=== PATIENT | female | born 1940 | race Caucasian/White ===

== ENCOUNTER → 2018-07-09 08:36 | Outpatient (CLI) | payer MEDICARE, OTHER, SELFPAY ==
--- NOTE | 2018-07-09 | DI.MRI.S_ITS ---
PROCEDURE: MR LUMBAR SPINE WO CON INDICATIONS: PAIN IN LEFT LOWER LEG TECHNIQUE: Noncontrast sagittal T1 spin echo and T2 fast echo, sagittal STIR, axial T1 and T2 fast spin echo through the lumbar spine. In cases with scoliosis, additional coronal T2 fast spin echo may be performed. COMPARISON: None. FINDINGS: Image quality: Excellent. Alignment and Curvature: There is normal bony alignment. Bone Marrow: Marrow is of normal overall signal. No acute vertebral body compression fractures. Spinal Cord: Conus medullaris terminates at the L1-L2 level. Visualized cord demonstrates normal signal and size. Paraspinous Soft Tissues: No paravertebral masses. There is mild dependent subcutaneous edema from the level of L2-S1. L1-L2: Normal appearance. L2-L3: Mild bilateral facet disease and minimal broad-based posterior disc bulge. Minimal canal narrowing. Mild left foraminal narrowing. No definite right foraminal stenosis. L3-L4: Bilateral facet arthropathy. No definite canal stenosis. Mild prominence of the dorsal epidural fat. Mild left and right foraminal narrowing. L4-L5: Minimal broad-based posterior disc bulge and bilateral facet arthropathy. Minimal canal narrowing. Mild bilateral, right greater left foraminal narrowing. L5-S1: No definite canal stenosis. Mild left and no right foraminal stenoses IMPRESSION: Multilevel lumbar disc degeneration and facet arthropathy as above. No high-grade canal stenosis. Diffuse, low grade bilateral foraminal stenoses as detailed by spinal level. Dictated by: Alvarez Burciaga M.D. on 07/09/2018 at 10:08 Approved by: Alvarez Burciaga M.D. on 07/09/2018 at 10:15
== END ==
PROVIDERS: Family Provider Internal Medicine; PCP Internal Medicine; Visit Provider Orthopaedic Surgery
DX: M79.662 Pain in left lower leg (principal); M51.36 Other intervertebral disc degeneration, lumbar region; M47.816 Spondylosis without myelopathy or radiculopathy, lumbar region; M48.061 Spinal stenosis, lumbar region without neurogenic claudication; M48.07 Spinal stenosis, lumbosacral region
CPT/HCPCS: 72148

== ENCOUNTER → 2018-08-26 10:58 | Outpatient (CLI) | payer MEDICARE, OTHER, SELFPAY ==
--- NOTE | 2018-08-26 | DI.MRI.S_ITS ---
PROCEDURE: MR LOWER LEG LT WO CON COMPARISON: None. INDICATIONS: FIBULAR NERVE INJURY/LUMBAR RADICULOPATHY FINDINGS: Marrow signals unremarkable. There is postoperative change related to left tibial IM dedrick fixation. There is atrophy of the soleus muscle, however this appears to be bilateral enlarged field of view images. No soft tissue mass or focal fluid collection is seen. Normal signal intensity in the region of the common peroneal nerve. No definite atrophy of the anterior compartment muscles. There is questionable muscle signal change is seen involving anterior tibialis tendon although this is periosteal in location IMPRESSION: Atrophy of the soleus muscle however on large field of view images including the contralateral side, this appears to be bilateral in nature. Please correlate clinically. Elsewhere, grossly unremarkable examination. Normal signal intensity in the region of the common peroneal nerve. Questionable muscle edema involving the anterior tibialis however this is quite subtle and unclear clinical significance. Recommend clinical correlation. , Dictated by: Alvarez Burciaga M.D. on 08/26/2018 at 13:05 Approved by: Alvarez Burciaga M.D. on 08/26/2018 at 13:14
== END ==
PROVIDERS: PCP Internal Medicine; Visit Provider Physical Medicine & Rehabilitation
DX: M54.16 Radiculopathy, lumbar region (principal); S84.802A Injury of other nerves at lower leg level, left leg, initial encounter
CPT/HCPCS: 73718

== ENCOUNTER 2018-09-24 10:59 | Emergency (ER) | payer MEDICARE, OTHER, SELFPAY ==
[2018-09-24] VITALS (8 sets, daily range): BP systolic 108–174; BP diastolic 81–98; PULSE 60–72; RESP 16–18; TEMP 36.7; O2SAT 97–100
[2018-09-24] MEDS: SODIUM CHLORIDE 0.9% 1,000 ML 150 ML IV (13:30)
--- NOTE | 2018-09-24 13:34 | ED.ABDPAIN ---
HPI - Abdominal Pain General Chief Complaint: Abdominal Pain Stated Complaint: CONSTANT PAIN ON LEFT LOWER SIDE OF STOMACH Time Seen by Provider: 09/24/18 13:21 Source: patient Mode of arrival: ambulatory Limitations: no limitations History of Present Illness HPI narrative: Patient is a 78-year-old female presents with abdominal pain off and on for the last 2 years. She had an abdominal hernia repair with Dr. Mcdowell a few years back since then she has continued continue to have some problems. Over the last day or so she has had increasing pain. No nausea or vomiting. No fever. She has regular bowel movements and is passing gas. Related Data Home Medications Medication Instructions Recorded Confirmed meclizine 25 mg PO PRN #0 06/27/11 09/24/18 ibuprofen 600 mg PO TID PRN #0 06/18/16 09/24/18 A-Reds 2 1 cap PO BID 09/24/18 09/24/18 iron 1 tab PO PRN PRN 09/24/18 09/24/18 Previous Rx's Medication Instructions Recorded zolpidem 10 mg tablet 10 mg PO HSP PRN #30 tab 09/14/18 Allergies Allergy/AdvReac Type Severity Reaction Status Date / Time aspirin [ASPIRIN] AdvReac Mild STOMACH Verified 07/24/18 09:29 PAIN Review of Systems Review of Systems All systems reviewed & are unremarkable except as noted in HPI and below Constitutional Denies chills, Denies fever(s), Denies lethargy and Denies weakness Cardiovascular Denies chest pain, Denies irregular heart rhythm, Denies lightheadedness, Denies palpitations, Denies dyspnea, Denies dyspnea on exertion and Denies orthopnea Respiratory Denies cough, Denies dyspnea, Denies dyspnea on exertion and Denies wheezing Gastrointestinal Gastrointestinal: Reports as per HPI Musculoskeletal Denies back pain, Denies muscle weakness, Denies numbness and Denies tingling Integumentary/Breasts Denies pruritus, Denies erythema, Denies rash and Denies wounds Neurologic Denies numbness, Denies tingling and Denies weakness Endocrine Denies palpitations Allergic/Immunologic Denies wheezing [facility] Medical History Mixed hyperlipidemia (Chronic) Gastroesophageal reflux disease without esophagitis (Chronic) Central sleep apnea (Chronic) Obstructive sleep apnea of adult (Chronic) Surgical History Status post right partial knee replacement (Resolved) Family History Spouse Heart disease Mother Cancer Social History marital status: details: domestic partner household members: significant other lives independently: Yes caregiver/support person: No housing: house pets and animals: Yes education level: college occupational status: other (Retired) Previous occupational history: [employer]. 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[employer]) and other ([employer]) Smoking Status: Never smoker Tobacco: How many years used: 0 quit status: quit date established (Never Started) second hand exposure: Yes (Once in a while) alcohol intake: current substance use type: does not use Exam Initial Vital Signs Initial Vital Signs: Vital Signs Temperature 98.0 F 09/24/18 11:17 Pulse Rate 68 09/24/18 11:17 Respiratory Rate 18 09/24/18 11:17 Blood Pressure 174/95 H 09/24/18 11:17 Pulse Oximetry 99 09/24/18 11:17 GENERAL: Overweight well-appearing female no acute distress HEENT: Head atraumatic,EOMI, pupils reactive, CARDIOVASCULAR: Regular rate and rhythm without murmurs, rubs or gallops. RESPIRATORY: Breath sounds equal bilaterally, no wheezes rales or rhonchi. ABDOMEN: Soft, obese, midline pain scar noted no distension normal bowel sounds left lower quadrant pain no right upper quadrant pain : No CVA tenderness EXTREMITIES: Normal range of motion, no clubbing or edema. Neurovascularly intact NEUROLOGICAL: Alert and oriented x4.Normal gait and speech. Cranial nerves II through XII grossly intact. SKIN: Warm, dry, no laceration, no petechiae, no rashes or lesions. Course Orders Ordered: ED Orders 09/24/18 13:59 Complete Blood Count AUTO DIFF Stat Comprehensive Metabolic Panel Stat Lipase Stat 09/24/18 14:07 CT abdomen pelvis w con Stat Discontinued Medications Sodium Chloride (Normal Saline 0.9%) 1,000 mls @ 150 mls/hr IV CONT JABARI Last Infusion: 09/24/18 16:03 Dose: 0 mls/hr Infusion: 09/24/18 14:51 Dose: 150 mls/hr Infusion: 09/24/18 14:50 Dose: 0 mls/hr Admin: 09/24/18 13:30 Dose: 150 mls/hr Vital Signs - 8 hr 09/24/18 11:17 09/24/18 13:25 09/24/18 13:30 Temperature 98.0 F Pulse Rate 68 62 64 Respiratory Rate 18 18 Blood Pressure 174/95 H Blood Pressure [Right Arm] 146/93 H 135/81 Pulse Oximetry 99 100 97 09/24/18 13:59 09/24/18 14:00 09/24/18 14:30 Temperature Pulse Rate 60 61 60 Respiratory Rate 16 16 16 Blood Pressure Blood Pressure [Right Arm] 108/91 H 126/90 Pulse Oximetry 98 98 98 09/24/18 14:45 09/24/18 15:43 Temperature Pulse Rate 60 72 Respiratory Rate 16 17 Blood Pressure Blood Pressure [Right Arm] 168/98 H 140/95 H Pulse Oximetry 98 MDM - Abdominal Pain Lab Data Attestation: I reviewed the patient's lab results. Result diagrams: 09/24/18 13:59 09/24/18 13:59 Lab Results 09/24/18 09/24/18 Range/Units 13:59 13:59 WBC 6.9 (4.5-11.0) X10^3/uL RBC 4.68 (4.0-5.2) X10^6/uL Hgb 13.5 (12.0-16.0) g/dL Hct 41.1 (36-46) % MCV 87.9 (80-100) fL MCH 28.8 (26-34) PG MCHC 32.7 (30-36) % RDW 14.5 (11.6-14.8) % Plt Count 181 (150-400) X10^3/uL Neut % (Auto) 63.1 (50-75) % Lymph % (Auto) 19.1 L (25-40) % [place] % (Auto) 15.7 H (3-14) % Eos % (Auto) 1.5 L (2-4) % Baso % (Auto) 0.6 (0-2) % Neut # (Auto) 4300 (4532-3910) /uL Sodium 142 (137-145) mmol/L Potassium 4.2 (3.4-5.1) mmol/L Chloride 104 (98-107) mmol/L Carbon Dioxide 29 (22-32) mmol/L BUN 19 H (7-17) mg/dL Creatinine 0.70 (0.52-1.04) mg/dL Estimated GFR > 60.0 (>60) mL/min BUN/Creatinine Ratio 27.1 H (6-22) Glucose 88 (80-110) mg/dL Calcium 9.3 (8.4-10.2) mg/dL Total Bilirubin 0.2 (0.2-1.3) mg/dL AST 18 (14-36) IU/L ALT 28 (9-52) IU/L Alkaline Phosphatase 106 (38-126) U/L Total Protein 7.1 (6.3-8.2) g/dL Albumin 3.9 (3.5-5.0) g/dL Globulin 3.2 (1.7-4.1) g/dL Albumin/Globulin Ratio 1.2 (1.0-2.8) Lipase 189 (23-300) U/L Point of care testing: Urine Dip Bedside Urine Glucose Negative Bedside Urine Bilirubin - Negative Bedside Urine Ketone - Negative Urine Specific [place] 1.015 Bedside Urine Occult Blood - Negative Bedside Urine pH 6.0 Bedside Urine Protein - Negative Bedside Urine Urobilinogen - Negative Bedside Urine Nitrite - Negative Bedside Urine Leukocytes - Negative Esterase Imaging Data CT scan - abdomen: Radiologist's impression: PROCEDURE: CT ABDOMEN PELVIS W CON INDICATIONS: left lower quadrant pain hx of ventral hernia TECHNIQUE: After the administration of intravenous contrast, 5 mm thick sections acquired from the diaphragm to the symphysis. 5 mm coronal and sagittal reformats were acquired. For radiation dose reduction, the following was used: automated exposure control, adjustment of mA and/or kV according to patient size. COMPARISON: [facility], CT, ABDOMEN/PELVIS WITH CONTRAST, 01/21/2010, 9:14. FINDINGS: Image quality: Excellent. ABDOMEN: Lung bases: Scattered areas of bibasilar and lingual atelectasis are noted. Solid organs: Liver is normal in size and enhancement. Hepatic steatosis is present. Gallbladder demonstrates layering areas of hyperdensity without wall thickening. Biliary system is non dilated. Pancreas enhances normally. Spleen is normal in size and enhancement. No adrenal nodules. Kidneys demonstrate normal size and enhancement, without hydronephrosis. Peritoneum and bowel: Bowel loops demonstrate normal wall thickness and caliber. No free fluid or air. Nodes and vessels: No retroperitoneal or mesenteric adenopathy by size criteria. Aorta and inferior vena cava are normal in size. Miscellaneous: No ventral hernias. PELVIS: Genitourinary: Bladder wall thickness is normal. Miscellaneous: No inguinal hernias or adenopathy. Bones: No suspicious bony lesions. No vertebral body compression fractures. IMPRESSION: 1. No acute visualized cause of left lower quadrant pain. 2. Hepatic steatosis. Dictated by: Dariela Meier M.D. on 09/24/2018 at 14:43 MDM Narrative Medical decision making narrative: The patient is relieved to hear blood work and CT results do not show anything specific. I recommend that she follow up with her PCP for further evaluation possible colonoscopy if are continues to have pain. At this time no sign of obstruction Discharge Plan Departure Patient Disposition: Home Clinical Impression: Abdominal pain Discharge Date/Time: 09/24/18 15:56 Interventions: ED Discharge Assessment Last Done: 09/24/18 15:56 Instructions: DI for Abdominal Pain-Adult Activity Restrictions/Additional Instructions: *You have been diagnosed with abdominal pain *What to do: Blood work and CAT scan today do not show any acute abnormality *Continue to take medications as directed *Follow up with your primary care provider in 2-3 days *Return to ER if you should have worsening pain, persistent vomiting fever or any new, worsening or concerning symptoms Prescriptions: No Action meclizine 25 mg PO PRN Qty: 0 RF: 0 ibuprofen 600 MG tablet 600 mg PO TID PRN (Reason: pain) Qty: 0 RF: 0 zolpidem 10 mg tablet 10 mg PO HSP PRN (Reason: insomnia) Qty: 30 RF: 0 A-Reds 2 1 cap PO BID RF: 0 iron 1 tab PO PRN PRN (Reason: when needs a boost) RF: 0 Referrals: Prince España MD [Primary Care Provider] -
[2018-09-24 14:02] LABS: Add Manual Diff / Slide Review NO; Basophils Percent Auto 0.6 % (0-2); Eosinophils Percent Auto 1.5 % (2-4); Hematocrit 41.1 % (36-46); Hemoglobin 13.5 g/dL (12.0-16.0); Lymphocytes Percent Auto 19.1 % (25-40); Mean Corpuscular HGB Conc 32.7 % (30-36); Mean Corpuscular Hemoglobin 28.8 PG (26-34); Mean Corpuscular Volume 87.9 fL (80-100); Monocytes Percent Auto 15.7 % (3-14); Neutrophils Absolute Auto 4300 /uL (3000-5900); Neutrophils Percent Auto 63.1 % (50-75); Platelet Count 181 X10^3/uL (150-400); Red Blood Cell Count 4.68 X10^6/uL (4.0-5.2); Red Cell Distribution Width 14.5 % (11.6-14.8); White Blood Cell Count 6.9 X10^3/uL (4.5-11.0)
--- NOTE | 2018-09-24 14:07 | DI.CT.S_ITS ---
PROCEDURE: CT ABDOMEN PELVIS W CON INDICATIONS: left lower quadrant pain hx of ventral hernia TECHNIQUE: After the administration of intravenous contrast, 5 mm thick sections acquired from the diaphragm to the symphysis. 5 mm coronal and sagittal reformats were acquired. For radiation dose reduction, the following was used: automated exposure control, adjustment of mA and/or kV according to patient size. COMPARISON: [facility], CT, ABDOMEN/PELVIS WITH CONTRAST, 01/21/2010, 9:14. FINDINGS: Image quality: Excellent. ABDOMEN: Lung bases: Scattered areas of bibasilar and lingual atelectasis are noted. Solid organs: Liver is normal in size and enhancement. Hepatic steatosis is present. Gallbladder demonstrates layering areas of hyperdensity without wall thickening. Biliary system is non dilated. Pancreas enhances normally. Spleen is normal in size and enhancement. No adrenal nodules. Kidneys demonstrate normal size and enhancement, without hydronephrosis. Peritoneum and bowel: Bowel loops demonstrate normal wall thickness and caliber. No free fluid or air. Nodes and vessels: No retroperitoneal or mesenteric adenopathy by size criteria. Aorta and inferior vena cava are normal in size. Miscellaneous: No ventral hernias. PELVIS: Genitourinary: Bladder wall thickness is normal. Miscellaneous: No inguinal hernias or adenopathy. Bones: No suspicious bony lesions. No vertebral body compression fractures. IMPRESSION: 1. No acute visualized cause of left lower quadrant pain. 2. Hepatic steatosis. Dictated by: Dariela Meier M.D. on 09/24/2018 at 14:43 Approved by: Dariela Meier M.D. on 09/24/2018 at 15:03
[2018-09-24 14:16] LABS: Alanine Aminotransferase 28 IU/L (9-52); Albumin 3.9 g/dL (3.5-5.0); Albumin Globulin Ratio 1.2 (1.0-2.8); Alkaline Phosphatase 106 U/L (38-126); Aspartate Aminotransferase 18 IU/L (14-36); BUN Creatinine Ratio 27.1 (6-22); Bilirubin Total 0.2 mg/dL (0.2-1.3); Blood Urea Nitrogen 19 mg/dL (7-17); Calcium 9.3 mg/dL (8.4-10.2); Carbon Dioxide 29 mmol/L (22-32); Chloride 104 mmol/L (98-107); Estimated Glomerular Filt Rate > 60.0 mL/min (>60); Globulin 3.2 g/dL (1.7-4.1); Glucose 88 mg/dL (80-110); HEMOLYSIS < 15 (0-50); Lipase 189 U/L (23-300); Potassium 4.2 mmol/L (3.4-5.1); Sodium 142 mmol/L (137-145); Total Protein 7.1 g/dL (6.3-8.2)
--- NOTE | 2018-09-24 16:04 | PC.NURSE ---
pt reports, lower abdominal pain, worsen when standing and when she standing next to a counter , pressure on the abdomin, makes it worsen. denies fever,chills, had 2 bm today, normal, denies blood. denies trauma.
== END 2018-09-24 15:56 | disposition home or self-care (01) ==
PROVIDERS: Emergency Provider Emergency Medicine; PCP Internal Medicine
DX: R10.9 Unspecified abdominal pain (principal)
CPT/HCPCS: 36591; 74177; 80053; 81003; 83690; 85025; 96360; 96361; 99285; Q9967

== ENCOUNTER → 2018-09-26 08:54 | Outpatient (CLI) | payer MEDICARE, OTHER, SELFPAY ==
--- NOTE | 2018-09-26 | DI.MG.S_ITS ---
BILATERAL DIGITAL SCREENING MAMMOGRAM 3D/2D WITH CAD: 09/26/2018 CLINICAL: Routine screening. Family history of breast cancer. Comparison is made to exams dated: 09/17/2017 mammogram, 09/09/2016 mammogram, and 09/05/2015 mammogram - [facility]. There are scattered fibroglandular elements in both breasts. Current study was also evaluated with a Computer Aided Detection (CAD) system. No significant masses, calcifications, or other findings are seen in either breast. There has been no significant interval change. IMPRESSION: NEGATIVE There is no mammographic evidence of malignancy. A 1 year screening mammogram is recommended. This exam was interpreted at Station ID: [id number]. NOTE: For mammograms, a report in lay terms will be sent to the patient. Approximately 15% of breast malignancies will not be visualized mammographically. In the management of a palpable breast mass, a negative mammogram must not discourage biopsy of a clinically suspicious lesion. Electronically Signed By: Last dunaway/ira:09/28/2018 09:17:39 letter sent: Normal Exam ACR BI-RADS Category 1: Negative 3341F
== END ==
PROVIDERS: PCP Internal Medicine; Visit Provider Internal Medicine
DX: Z12.31 Encounter for screening mammogram for malignant neoplasm of breast (principal); Z80.3 Family history of malignant neoplasm of breast
CPT/HCPCS: 77063; 77067

== ENCOUNTER → 2019-08-09 10:48 | Outpatient (CLI) | payer MEDICARE, OTHER, SELFPAY ==
--- NOTE | 2019-08-13 16:08 | PM.PFT.1 ---
Pulmonary Function Test Referral & Results Date Patient Seen: 08/09/19 Requesting provider: Prince España Results: The spirometry demonstrates an FVC of 2.91 L which is 103% of predicted. The FEV1 was measured at 2.39 L which is 114% of predicted. The FEV1/FVC ratio was 82 which is 111% of predicted. Following the administration of bronchodilator there was no appreciable change. Lung volumes show an SVC of 2.65 L which is 94% of predicted. The diffusing capacity was measured at 20.66 which is 80% of predicted. The maximum voluntary ventilation was probably normal Interpretation: This study demonstrates probably normal pulmonary function. The may be a minimal reduction in diffusing capacity
== END ==
PROVIDERS: PCP Internal Medicine; Visit Provider Internal Medicine
DX: R06.09 Other forms of dyspnea (principal)
CPT/HCPCS: 94060; 94726; 94729

== ENCOUNTER → 2019-10-08 14:39 | Outpatient (CLI) | payer MEDICARE, OTHER, SELFPAY ==
--- NOTE | 2019-10-08 | DI.MG.S_ITS ---
BILATERAL DIGITAL SCREENING MAMMOGRAM 3D/2D WITH CAD: 10/08/2019 CLINICAL: Routine screening. Family history of breast cancer. Comparison is made to exams dated: 09/26/2018 mammogram, 09/17/2017 mammogram, and 09/09/2016 mammogram - [facility]. There are scattered fibroglandular elements in both breasts. Current study was also evaluated with a Computer Aided Detection (CAD) system. There is an asymmetry in the right breast at 12 o'clock middle depth. There is architectural distortion associated with the asymmetry. No other significant masses, calcifications, or other findings are seen in either breast. IMPRESSION: INCOMPLETE: NEEDS ADDITIONAL IMAGING EVALUATION The asymmetry in the right breast is indeterminate. Additional views with possible ultrasound are recommended. This exam was interpreted at Station ID: [id number]. NOTE: For mammograms, a report in lay terms will be sent to the patient. Approximately 15% of breast malignancies will not be visualized mammographically. In the management of a palpable breast mass, a negative mammogram must not discourage biopsy of a clinically suspicious lesion. Electronically Signed By: Gloria calixto/:10/08/2019 15:51:55 letter sent: Additional Imaging Needed ACR BI-RADS Category 0: Incomplete 3340F
== END ==
PROVIDERS: PCP Internal Medicine; Visit Provider Internal Medicine
DX: Z12.31 Encounter for screening mammogram for malignant neoplasm of breast (principal); Z80.3 Family history of malignant neoplasm of breast
CPT/HCPCS: 77063; 77067

== ENCOUNTER → 2019-11-01 12:53 | Outpatient (CLI) | payer MEDICARE, OTHER, SELFPAY ==
--- NOTE | 2019-11-01 | DI.MG.S_ITS ---
UNILATERAL RIGHT DIGITAL DIAGNOSTIC MAMMOGRAM 3D/2D WITH ADDITIONAL VIEWS: 11/01/2019 CLINICAL: Additional evaluation requested from prior study. Comparison is made to exams dated: 10/08/2019 mammogram, 09/26/2018 mammogram, and 09/17/2017 mammogram - [facility]. There are scattered fibroglandular elements in right breast. Previously identified asymmetry in the right breast at 12 o'clock middle depth with associated architectural distortion seen on comparison screening mammograms of 10/08/19 persists with additional views. IMPRESSION: INCOMPLETE: NEEDS ADDITIONAL IMAGING EVALUATION Previously identified asymmetry in the right breast at 12 o'clock middle depth with associated architectural distortion seen on comparison screening mammograms of 10/08/19 persists with additional views. A targeted ultrasound is recommended for further evaluation, and will be performed immediately following this exam. This exam was interpreted at Station ID: [id number]. NOTE: For mammograms, a report in lay terms will be sent to the patient. Approximately 15% of breast malignancies will not be visualized mammographically. In the management of a palpable breast mass, a negative mammogram must not discourage biopsy of a clinically suspicious lesion. Electronically Signed By: Shankar Barrera M.D. ecl/:11/01/2019 13:52:33 ACR BI-RADS Category 0: Incomplete [id number]
--- NOTE | 2019-11-01 12:54 | DI.US.S_ITS ---
LIMITED ULTRASOUND OF RIGHT BREAST AND AXILLA: 11/01/2019 CLINICAL: Patient returns today to evaluate an asymmetry in the right breast. Comparison is made to exams dated: 11/01/2019 mammogram, 10/08/2019 mammogram, 09/26/2018 mammogram, and 09/17/2017 mammogram - [facility]. Color flow and real-time ultrasound of the right breast 10-2 o'clock, and axilla regions were performed. Gunter scale images of the real-time examination were reviewed. There is a 0.8 cm x 0.8 cm x 0.7 cm irregular mass with an indistinct margin in the right breast at 1 o'clock 6 cm from the nipple. This irregular mass is hypoechoic with an echogenic boundary and posterior acoustic shadowing. This correlates with mammography findings. Color flow imaging demonstrates that there is no increase in vascularity. No other masses or abnormalities were identified by targeted ultrasound of the left breast. Targeted ultrasound of the axilla demonstrates no ultrasound evidence of right axillary lymphadenopathy. IMPRESSION: SUSPICIOUS OF MALIGNANCY 1) The 0.8 cm x 0.8 cm x 0.7 cm irregular mass in the right breast at 1 o'clock 6 cm from the nipple is at a high suspicion for malignancy. An ultrasound guided biopsy is recommended. 2) No ultrasound evidence of axillary lymphadenopathy. These results and recommendations were discussed with the patient at the time of the exam by the [facility] Radiologist Dr. Wilder Roberts in person. This exam was interpreted at Station ID: [id number]. Electronically Signed By: Shankar Barrera M.D. ecl/:11/01/2019 14:22:34 letter sent: Biopsy Required Ultrasound BI-RADS: 4c High suspicion of malignancy
== END ==
PROVIDERS: PCP Internal Medicine; Visit Provider Internal Medicine
DX: R92.8 Other abnormal and inconclusive findings on diagnostic imaging of breast (principal); N63.12 Unspecified lump in the right breast, upper inner quadrant
CPT/HCPCS: 76642; 77065; G0279

== ENCOUNTER → 2019-11-18 08:53 | Outpatient (CLI) | payer MEDICARE, OTHER, SELFPAY ==
--- NOTE | 2019-11-18 | PATH_ITS ---
[facility] Accession Number: [id number] . 01 Material submitted: . breast - RT BREAST MASS . 01 Diagnosis: Right Breast Mass, Biopsy: Invasive (lobular) carcinoma, grade 2 of 3 ([place] combined histologic grade, total score 6/9) with the following features: 1. Tubular differentiation: Little or none. (3/3) 2. Nuclear pleomorphism: Intermediate. (2/3) 3. Mitotic rate: Low. (1/3) 4. Size of invasive carcinoma: Present on multiple cores, single largest dimension of 4 mm in this sample. 5. Ductal carcinoma in situ/Lobular in situ neoplasia: Absent. 6. Calcifications: Absent. 7. Lymphatic invasion: Absent. 8. Prognostic markers: a. Estrogen receptor status: Positive (>95%, Strong). b. Progesterone receptor status: Positive (70%, Strong). c. HER2 status: Negative for protein overexpression by immunohistochemistry (0). [facility] 11/19/20191952 Local . 01 Comment: Dr. Guillaume reviewed the E-cadherin and Beta-catenin immunostains and agrees with the interpretation. . 01 Electronically signed: Michael Gill MD, Pathologist NPI- [id number] . 01 Gross description: . Received one formalin-filled container, labeled with the patient's name and labeled RT breast mass. The specimen is received with a plastic filter in container, sample loose in container and consists of multiple fragments of light yellow-bernard soft tissue which range in size from less than 0.1 cm to 1.5 x 0.3 x 0.2 cm. The specimen is filtered and entirely submitted in one cassette. Collection date: 11/18/19. Collection time per container: 10:13. Total fixation time: Approximately 13 hours. ([id number]) /SHERI 11/19/2019 0230 Local . 01 Microscopic: . E-cadherin and beta-catenin immunostains are performed on block A1 in order to assess for lobular phenotype, with appropriately staining external controls. The invasive carcinoma has diminished immunoreactivity for both e-cadherin and beta-catenin (aberrant expression), in support of lobular phenotype. . Predictive marker immunohistochemical studies are performed on block A1 with the invasive carcinoma showing the following results: . Estrogen receptor (SP1): Positive (>95% of tumor cells, Strong intensity). Progesterone receptor (1E2): Positive (70% of tumor cells, Strong intensity). Her2 (4B5): Negative for protein overexpression (0). . Internal controls for ER and [place] are positive. Cold ischemic time is <5 minutes. The scoring criteria for breast biomarkers by immunohistochemistry is based on the ASCO/CAP guidelines (Sol AC et al, J Clin Oncol: 2017Apr 28;36(20):0486-2207 and Bryan JOHNSON et al, Arch Pathol Lab Med: 2009;134(6):907-22). Deparaffinized sections of formalin fixed tissue (along with appropriate positive controls) are incubated with the above antibody(s). Using the automated Liscomb stainer, tissue is incubated with the designated antibody which is then localized by a non-biotin, dual polymer detection system. The external controls are reviewed for appropriate reactivity and found to be adequate. Results on the target cell population are indicated above. These tests have not been validated on decalcified tissue. This test was developed and its performance characteristics determined by [facility]. It has not been cleared or approved by the U.S. Food and Drug Administration. The FDA has determined that such clearance or approval is not necessary. This test is used for clinical purposes. It should not be regarded as investigational or for research. . 01 Pathologist provided ICD-10: C50.911 . 01 CPT . 585045, W96194, T08113, 868809, 709557, 233011 Performed at: 01 [facility] [address] [place] [address] [address], [place], [place] [id number] MD Last Brian MD Phone: [phone]
--- NOTE | 2019-11-18 | DI.MG.S_ITS ---
UNILATERAL RIGHT DIGITAL DIAGNOSTIC MAMMOGRAM POST-NEEDLE BIOPSY: 11/18/2019 CLINICAL: Right breasyt mass. Comparison is made to exams dated: 11/01/2019 ultrasound, 11/01/2019 mammogram, and 10/08/2019 mammogram - [facility]. There are scattered fibroglandular elements in right breast. There is a marker clip in the appropriate position in the right breast at 1 o'clock middle depth 6 cm from the nipple. This marker clip placement is at the biopsy site. IMPRESSION: POST PROCEDURE MAMMOGRAM FOR MARKER PLACEMENT There was a successful marker clip placement at the 1 o'clock position in the right breast middle depth corresponding with site of breast mass. This exam was interpreted at Station ID: [id number]. NOTE: For mammograms, a report in lay terms will be sent to the patient. Approximately 15% of breast malignancies will not be visualized mammographically. In the management of a palpable breast mass, a negative mammogram must not discourage biopsy of a clinically suspicious lesion. Electronically Signed By: Tyler Fields M.D. aty/:11/18/2019 23:38:26 ACR BI-RADS Category Post-procedure mammogram for marker placement
--- NOTE | 2019-11-18 08:57 | DI.US.S_ITS ---
ULTRASOUND GUIDED BIOPSY RIGHT BREAST USING VACUUM DEVICE WITH MARKING DEVICE INSERTED AND POST MAMMOGRAPHIC IMAGIN11/18/2019 CLINICAL: Rt breast mass. PATIENT CONSENT: Risks (minor bleeding, infection, vasovagal reaction and repeat procedure), benefits and alternatives were explained to the patient and written informed consent was obtained. Correlation is made to exams dated: 11/18/2019 mammogram, 11/01/2019 ultrasound, 11/01/2019 mammogram, 10/08/2019 mammogram, and 09/26/2018 mammogram - [facility]. An ultrasound guided biopsy using real-time ultrasound was performed for the 0.8 cm x 0.8 cm x 0.7 cm indistinct mass located in the right breast at 1 o'clock middle depth 6 cm from the nipple. This was described on the previous mammography and ultrasound reports. The skin was prepped in the usual manner. Local anesthetic was administered to the access site. A skin eliezer was made in the breast. The abnormality was approached from the lateral aspect. A 13 gauge biopsy needle was placed adjacent to the abnormality under ultrasound guidance. Once the needle was documented to be in the correct location, seven specimens were obtained using the Mammotome biopsy system. A clip was inserted into the biopsy cavity. A sterile dressing was applied to the access site. Post procedure mammographic imaging demonstrates the location device at the targeted area. The specimens were sent to the laboratory for pathological analysis. IMPRESSION: ULTRASOUND GUIDED BIOPSY MALIGNANT Ultrasound guided biopsy of the 0.8 cm x 0.8 cm x 0.7 cm mass in the right breast at 1 o'clock middle depth 6 cm from the nipple was successful. Pathology indicates malignant invasive lobular carcinoma ([place]). Pathology results are concordant with imaging findings. A surgical/oncologic consultation is recommended. This exam was interpreted at Station ID: [id number]. Tyler galo,slc/:11/25/2019 09:27:24
== END ==
PROVIDERS: PCP Internal Medicine; Visit Provider Internal Medicine
DX: C50.211 Malignant neoplasm of upper-inner quadrant of right female breast (principal); Z17.0 Estrogen receptor positive status [ER+]
CPT/HCPCS: 19083; 77065

== ENCOUNTER → 2020-01-05 13:42 | Outpatient (CLI) | payer MEDICARE, OTHER, SELFPAY | PROVIDERS: PCP Internal Medicine; Referring Provider Internal Medicine Hematology & Oncology; Visit Provider Internal Medicine Hematology & Oncology | DX: M81.0 Age-related osteoporosis without current pathological fracture (principal); Z78.0 Asymptomatic menopausal state; C50.911 Malignant neoplasm of unspecified site of right female breast; Z17.0 Estrogen receptor positive status [ER+] | CPT/HCPCS: 77080 ==

== ENCOUNTER → 2020-11-14 11:23 | Outpatient (CLI) | payer MEDICARE, OTHER, SELFPAY ==
[2020-11-14] MEDS: COVID-19 VACC #1, MRNA(MOD) 100 MCG/0.5 ML VIAL IM (11:32)
== END ==
PROVIDERS: PCP Internal Medicine; Visit Provider Internal Medicine
DX: Z23 Encounter for immunization (principal)
CPT/HCPCS: 0011A; 91301

== ENCOUNTER → 2020-12-12 12:06 | Outpatient (CLI) | payer MEDICARE, OTHER, SELFPAY ==
[2020-12-12] MEDS: COVID-19 VACC #2, MRNA(MOD) 100 MCG/0.5 ML VIAL IM (12:13)
== END ==
PROVIDERS: PCP Internal Medicine; Visit Provider Internal Medicine
DX: Z23 Encounter for immunization (principal)
CPT/HCPCS: 0012A; 91301

== ENCOUNTER → 2021-01-15 11:33 | Outpatient (CLI) | payer MEDICARE, OTHER, SELFPAY ==
[2021-01-15 12:49] LABS: COVID19 -Nasal RAPID Negative (Negative)
== END ==
PROVIDERS: PCP Internal Medicine; Visit Provider Physician Assistant
DX: Z20.822 Contact with and (suspected) exposure to COVID-19 (principal)
CPT/HCPCS: 87635; C9803

== ENCOUNTER → 2021-01-17 10:27 | Outpatient (CLI) | payer MEDICARE, OTHER, SELFPAY ==
--- NOTE | 2021-01-17 10:30 | DI.NM.S_ITS ---
PROCEDURE: NM DANIELLE PERF SPECT R&S PHARM Rest and pharmacological stress myocardial perfusion SPECT with gated imaging and ejection fraction RADIOPHARMACEUTICAL: 25.1 mCi Tc-99m tetrafosmin IV at rest and 26.3 mCi Tc-99m tetrafosmin IV at peak effect of pharmacological stress. Wjy-aib-itzhywad was performed. INDICATIONS: Dyspnea, unspecified TECHNIQUE: Radiopharmaceutical was injected at peak stress test, and also at rest. SPECT images were obtained. SPECT myocardial perfusion images were displayed in short axis, horizontal long axis, and vertical long axis views. Gated images were reviewed using Tagoodies software. COMPARISON: None. CARDIAC STRESS: A pharmacologic stress test was performed under the supervision of an attending staff, using an infusion of lexiscan 0.4mg IV X1. Hemodynamic data: There is normal blood pressure and heart rate response to pharmacologic stress. Symptoms: The patient denied anginal chest pain. Aminophylline: none EKG: No diagnostic changes of ischemia; no ectopy. FINDINGS: Raw data: There is good myocardial uptake of radiotracer. No significant motion artifacts. Farp-oo-tpbdc ratio is 0.39 (normal is less than 0.38 for tetrafosmin tracer). Left ventricle function: Gated images demonstrate normal left ventricular wall thickening. No segmental wall motion abnormalities. No transient ischemic dilation; TID is 0.87 (normal less than 1.3). Left ventricle resting end diastolic volume is 92 mL. Left ventricle stress ejection fraction is 67%; normal range is above 45%. Myocardial perfusion: There is normal distribution of activity in the right and left ventricular myocardium. No fixed or reversible perfusion defects. IMPRESSION: Low risk, normal pharmaceutical nuclear stress test 1) No perfusion evidence of ischemia or infarction. 2) Normal left ventricular size, wall motion, and systolic function (EF post stress 67%). 3) No ECG evidence of ischemia. 4) No angina during the study. 5) No prior nuclear stress test available for comparison. Dictated by: Aurdey Doyle MD on 01/18/2021 at 16:48 Approved by: Audrey Doyle MD on 01/18/2021 at 16:50
== END ==
PROVIDERS: PCP Internal Medicine; Referring Provider Internal Medicine Cardiovascular Disease; Visit Provider Internal Medicine Cardiovascular Disease
DX: R06.00 Dyspnea, unspecified (principal)
CPT/HCPCS: 78452; 93017; A9502; J2785

== ENCOUNTER → 2021-01-26 14:54 | Outpatient (CLI) | payer MEDICARE, OTHER, SELFPAY ==
[2021-01-26 15:00] LABS: Bacteria Urine None Seen
[2021-01-26 15:19] LABS: Appearance Urine UA CLOUDY; Bilirubin Urine UA NEGATIVE (NEGATIVE); Color Urine UA YELLOW; Glucose Urine UA NEGATIVE (Negative); Ketones Urine UA NEGATIVE (NEGATIVE); Leukocyte Esterase Urine UA NEGATIVE (NEGATIVE); Nitrite Urine UA NEGATIVE (Negative); Occult Blood Urine UA 3+ (Negative); Protein Urine UA 1+ (Negative); Specific Gravity Urine UA >=1.030 (1.000-1.035); Urobilinogen Urine UA 0.2 E.U./dL (0.2)
[2021-01-26 15:20] LABS: pH Urine UA 5.5 (4.5-8.0)
[2021-01-26 15:28] LABS: Culture Indicated Urine Specimen Cultured; RBC Urine 5-10/HPF (0-5/HPF); Renal Epithelial Cells Urine 1-5/HPF (0-1/HPF); WBC Urine 5-10/HPF (0-5/HPF)
== END ==
PROVIDERS: PCP Internal Medicine; Referring Provider Internal Medicine; Visit Provider Internal Medicine
DX: N39.0 Urinary tract infection, site not specified (principal)
CPT/HCPCS: 81001; 87086

== ENCOUNTER → 2021-05-15 12:05 | Outpatient (CLI) | payer MEDICARE, OTHER, SELFPAY ==
--- NOTE | 2021-05-15 12:11 | DI.RAD.S_ITS ---
PROCEDURE: XR CHEST 2V INDICATIONS: dyspnea TECHNIQUE: 2 views of the chest were acquired. COMPARISON: [facility], , CHEST 1 VIEW, 06/27/2011, 7:31. FINDINGS: Surgical changes and devices: Surgical clips are noted projecting in right breast/right anterior chest wall. Lungs and pleura: Lungs are clear. No pleural effusions or pneumothorax. Mediastinum: Mildly tortuous thoracic aorta is seen. Heart size is enlarged. Bones and chest wall: No suspicious bony abnormalities. Soft tissues appear unremarkable. IMPRESSION: No acute cardiopulmonary pathology. Dictated by: Car Snow M.D. on 05/15/2021 at 15:05 Approved by: Car Snow M.D. on 05/15/2021 at 15:06
== END ==
PROVIDERS: PCP Internal Medicine; Referring Provider Internal Medicine; Visit Provider Internal Medicine
DX: R06.00 Dyspnea, unspecified (principal)
CPT/HCPCS: 71046

== ENCOUNTER → 2021-05-24 09:01 | Outpatient (CLI) | payer MEDICARE, OTHER, SELFPAY ==
[2021-05-24 09:48] LABS: COVID19 -Nasal RAPID Negative (Negative)
== END ==
PROVIDERS: PCP Internal Medicine; Referring Provider Internal Medicine; Visit Provider Internal Medicine
DX: Z01.812 Encounter for preprocedural laboratory examination (principal); Z20.822 Contact with and (suspected) exposure to COVID-19
CPT/HCPCS: 87635; C9803

== ENCOUNTER → 2021-05-24 11:05 | Outpatient (CLI) | payer MEDICARE, OTHER, SELFPAY ==
--- NOTE | 2021-06-06 09:39 | PM.PFT.1 ---
Pulmonary Function Test Referral & Results Date Patient Seen: 05/24/21 Requesting provider: Prince España Results: The spirometry demonstrates an FVC of 2.29 L which is 83% of predicted. The FEV1 was measured at 1.83 L which is 90% of predicted. The FEV1/FVC ratio was 80 which is 108% of predicted. Following the administration of bronchodilator there was 22% improvement in FEV1 and a 68 % improvement in FEF 25-75. Lung volumes show an SVC of 2.97 L which is 107% of predicted. The diffusing capacity was measured at 21.74 which is 84% of predicted. The maximum voluntary ventilation was reduced Interpretation: This study demonstrates possible very mild obstructive lung disease based primarily on improvement in FEV1 and FEF 25-75% after bronchodilator. Lung volumes and diffusing capacity are normal Compared to PFTs performed in July 2019, current study does show decline in FEV1 and on prior study there was no benefit post bronchodilator Clinical correlation suggested
== END ==
PROVIDERS: PCP Internal Medicine; Referring Provider Internal Medicine; Visit Provider Internal Medicine
DX: R06.02 Shortness of breath (principal); Z01.812 Encounter for preprocedural laboratory examination; Z20.822 Contact with and (suspected) exposure to COVID-19
CPT/HCPCS: 87635; 94060; 94726; 94729; C9803

== ENCOUNTER → 2021-12-04 12:08 | Outpatient (CLI) | payer MEDICARE, OTHER, SELFPAY ==
[2021-12-04 14:29] LABS: BUN Creatinine Ratio 19.2 (6-22); Blood Urea Nitrogen 15 mg/dL (7-17); Estimated Glomerular Filt Rate > 60.0 mL/min (>60)
== END ==
PROVIDERS: PCP Internal Medicine; Referring Provider Urology; Visit Provider Urology
DX: N32.89 Other specified disorders of bladder (principal)
CPT/HCPCS: 36415; 82565; 84520

== ENCOUNTER → 2021-12-06 15:00 | Outpatient (CLI) | payer MEDICARE, OTHER, SELFPAY ==
--- NOTE | 2021-12-06 15:02 | DI.CT.S_ITS ---
PROCEDURE: CT ABDOMEN PELVIS WO/W CON INDICATIONS: BLADDER MASS TECHNIQUE: Optional 5 mm thick noncontrast images acquired from the diaphragm to the symphysis pubis. After the administration of intravenous contrast, 5 mm thick images acquired from the diaphragm to the symphysis pubis after a 10-minute delay. 2 mm thick coronal and sagittal reformats were then performed of the kidneys and ureters. For radiation dose reduction, the following was used: automated exposure control, adjustment of mA and/or kV according to patient size. COMPARISON: None. FINDINGS: Image quality: Excellent. Lung bases: Bibasilar atelectasis/scar. Heart size is normal. Urinary system: Both kidneys are normal in size, without hydronephrosis or nephrolithiasis on pre-contrast images. No perinephric fat stranding. There is normal bilateral renal enhancement. Renal calyces appear normal in morphology when filled with contrast. Opacified portions of both ureters demonstrate normal caliber. Bladder wall thickening, partially related to under distention. A 2 x 2.3 cm mass is seen in the right anterior aspect of the urinary bladder. No calcified bladder stones. Other solid organs: Liver is normal in size and enhancement. Hepatic steatosis. Hydropic appearance of the gallbladder without wall thickening or pericholecystic fluid. Layering sludge is seen. Biliary system is non dilated. Pancreas enhances normally. Spleen is normal in size and enhancement. No adrenal nodules. Peritoneum and bowel: Bowel loops demonstrate normal wall thickness and caliber. No free fluid or air. Nodes and vessels: No retroperitoneal or mesenteric adenopathy by size criteria. Aorta and inferior vena cava are normal in size. Abdominal wall: No ventral hernias. Fatty infiltration of the left rectus muscle. Pelvis: No pathologic free pelvic fluid. No inguinal hernias or adenopathy. Bones: No suspicious bony lesions. Multifocal degenerative change. No vertebral body compression fractures. IMPRESSION: 1. 2 x 2.3 cm mass in the right anterior aspect of the urinary bladder, most consistent with a neoplastic process. 2. Hepatic steatosis. 3. Hydropic appearance of the gallbladder with layering sludge. Dictated by: Jc Angulo M.D. on 12/06/2021 at 16:47 Approved by: Jc Angulo M.D. on 12/06/2021 at 16:54
== END ==
PROVIDERS: PCP Internal Medicine; Referring Provider Urology; Visit Provider Urology
DX: N32.89 Other specified disorders of bladder (principal); K76.0 Fatty (change of) liver, not elsewhere classified; K82.8 Other specified diseases of gallbladder
CPT/HCPCS: 74178; Q9967

== ENCOUNTER 2021-12-22 13:29 | Emergency (ER) | payer MEDICARE, OTHER, SELFPAY ==
[2021-12-22 13:36] VITALS: PULSE 87; O2SAT 97
[2021-12-22 13:40] VITALS: BP 142/68; PULSE 76; TEMP 37; O2SAT 98
[2021-12-22 13:47] VITALS: BP 142/68; PULSE 82; RESP 17; TEMP 36.6; O2SAT 98; BMI 42.9
[2021-12-22 13:55] LABS: Appearance Urine UA SL CLOUDY; Bilirubin Urine UA NEGATIVE (NEGATIVE); Color Urine UA YELLOW; Glucose Urine UA NEGATIVE (Negative); Ketones Urine UA NEGATIVE (NEGATIVE); Leukocyte Esterase Urine UA 1+ (NEGATIVE); Nitrite Urine UA NEGATIVE (Negative); Occult Blood Urine UA 3+ (Negative); Protein Urine UA 2+ (Negative); Urobilinogen Urine UA 0.2 E.U./dL (0.2)
[2021-12-22 14:02] LABS: Amorphous Sediment Urine 1+; Bacteria Urine Moderate (10-30); Culture Indicated Urine Specimen Cultured; Mucus Urine 2+ (Negative); RBC Urine 10-30/HPF (0-5/HPF); WBC Urine 5-10/HPF (0-5/HPF)
--- NOTE | 2021-12-22 14:14 | ED_ITS ---
HPI - Female Genitourinary <Alo West PA-C - Last Filed: 12/22/21 18:34> General Chief complaint: Urogenital-Female Stated complaint: has cath, thinks UTI Time Seen by Provider: 12/22/21 13:49 Source: patient Mode of arrival: Ambulatory History of Present Illness HPI Narrative: Patient is an 81-year-old female with history of bladder cancer presenting to the emergency department today for an evaluation possible UTI. Patient explains that she had surgery for bladder cancer on Friday and notes that she has had a urinary catheter in place since that time. She explains that she began experiencing pain associated with the urinary catheter 2 days ago, stating that when she bends forward the pain worsens. Of note, patient states that she has an appointment scheduled with Dr. Sims this upcoming Friday for a postsurgical evaluation. She denies fever, chills, chest pain, cough, shortness of breath, nausea, vomiting, diarrhea, abdominal pain, blood in her urine, flank pain, or any other concerning symptoms. No further concerns were voiced at this time. Related Data Home Medications Medication Instructions Recorded Confirmed meclizine 25 mg PO PRN #0 06/27/11 09/06/21 ibuprofen 600 mg tablet 600 mg PO TID PRN #0 06/18/16 09/06/21 A-Reds 2 1 cap PO BID 09/24/18 09/06/21 iron 1 tab PO PRN PRN 09/24/18 09/06/21 letrozole 2.5 mg tablet 2.5 mg PO DAILY 05/15/21 09/06/21 Previous Rx's Medication Instructions Recorded atorvastatin 20 mg tablet 20 mg PO BEDTIME #90 tab 06/12/21 zolpidem 10 mg tablet 10 mg PO HSP PRN #30 tab 09/10/21 ciprofloxacin HCl 500 mg tablet 500 mg PO BID #14 tab 09/27/21 sulfamethoxazole 800 1 tab PO BID #14 tab 12/22/21 mg-trimethoprim 160 mg tablet (Bactrim DS) Allergies Allergy/AdvReac Type Severity Reaction Status Date / Time aspirin [ASPIRIN] AdvReac Mild STOMACH Verified 12/22/21 13:51 PAIN Review of Systems <Alo West PA-C - Last Filed: 12/22/21 18:34> Constitutional Constitutional: Denies chills, Denies fatigue, Denies fever(s), Denies frequent falls, Denies lethargy and Denies weakness ENT Ears, Nose, Mouth, and Throat: Denies neck pain Cardiovascular Cardiovascular: Denies chest pain, Denies irregular heart rhythm, Denies lightheadedness, Denies palpitations, Denies dyspnea, Denies dyspnea on exertion and Denies orthopnea Respiratory Respiratory: Denies cough, Denies dyspnea, Denies dyspnea on exertion and Denies wheezing Gastrointestinal Gastrointestinal: Denies abdominal pain, Denies change in bowel habits, Denies diarrhea, Denies nausea and Denies vomiting Genitourinary Genitourinary: Denies hematuria, Denies flank pain, Denies urinary incontinence, Denies urinary urgency and Reports other (Pain associated with the urinary catheter) Musculoskeletal Musculoskeletal: Denies back pain, Denies muscle weakness, Denies neck pain, Denies numbness and Denies tingling Integumentary/Breasts Skin/Breast: Denies pruritus, Denies erythema, Denies rash and Denies wounds Neurologic Neurologic: Denies frequent falls, Denies numbness, Denies tingling and Denies weakness Endocrine Endocrine: Denies fatigue and Denies palpitations Allergic/Immunologic Allergic/Immunologic: Denies wheezing Patient History <Alo West PA-C - Last Filed: 12/22/21 18:34> Medical History Breast cancer (~10/2019) Central sleep apnea Gastroesophageal reflux disease without esophagitis Mixed hyperlipidemia Morbid obesity Obstructive sleep apnea of adult Surgical History S/P ventral herniorrhaphy Status post right partial knee replacement Family History Spouse Heart disease Mother Cancer alcohol intake frequency: holidays/special occasions only Substance Use Type: does not use Exam <Alo West PA-C - Last Filed: 12/22/21 18:34> Narrative Exam Narrative: GENERAL: 81 year old patient appears stated age. Well-developed patient, in no acute distress. HEAD: Atraumatic. Normocephalic. EYES: Pupils equal round and reactive. Extraocular motions intact. No scleral icterus. No injection or drainage. ENT: Nose without bleeding, purulent drainage. Throat without erythema, tonsillar hypertrophy or exudate. Airway patent. NECK: Trachea midline. Non tender CARDIOVASCULAR: Regular rate and rhythm without murmurs, gallops, or rubs. RESPIRATORY: Clear to auscultation. Breath sounds equal bilaterally. No wheezes, rales, or rhonchi. GASTROINTESTINAL: Abdomen soft, non-tender, nondistended. GENITOURINARY: Urinary catheter in place. No kevin hematuria appreciated. EXTREMITIES: No edema or joint tenderness. BACK: Nontender without deformity or crepitance. No flank tenderness. NEURO: AOx3. SKIN: No rash or erythema of visible areas Initial Vital Signs Initial Vital Signs: Vital Signs Pulse Rate 87 12/22/21 13:36 Pulse Oximetry 97 12/22/21 13:36 <Yajaira Arguelles DO - Last Filed: 12/23/21 20:02> Initial Vital Signs Initial Vital Signs: Vital Signs Pulse Rate 87 12/22/21 13:36 Pulse Oximetry 97 12/22/21 13:36 Course <Alo West PA-C - Last Filed: 12/22/21 18:34> Course Course Narrative: Urinalysis obtained. Orders Ordered: ED Orders 12/22/21 13:53 Urinalysis and Microscopic Stat Urine Culture Stat Vital Signs Vital signs: Vital Signs - 8 hr 12/22/21 13:36 12/22/21 13:40 12/22/21 13:47 Temperature 98.6 F 98 F Pulse Rate 87 76 82 Respiratory Rate 17 Blood Pressure 142/68 H 142/68 H Pulse Oximetry 97 98 98 12/22/21 15:00 Temperature Pulse Rate 77 Respiratory Rate 15 Blood Pressure 133/76 Pulse Oximetry 99 <Yajaira Arguelles DO - Last Filed: 12/23/21 20:02> Orders Ordered: ED Orders 12/22/21 13:53 Urinalysis and Microscopic Stat Urine Culture Stat Vital Signs Vital signs: Vital Signs - 8 hr 12/22/21 13:36 12/22/21 13:40 12/22/21 13:47 Temperature 98.6 F 98 F Pulse Rate 87 76 82 Respiratory Rate 17 Blood Pressure 142/68 H 142/68 H Pulse Oximetry 97 98 98 12/22/21 15:00 Temperature Pulse Rate 77 Respiratory Rate 15 Blood Pressure 133/76 Pulse Oximetry 99 MDM - Female Genitourinary <Alo West PA-C - Last Filed: 12/22/21 18:34> Lab Data Labs: Lab Results 12/22/21 Range/Units 13:53 Urine Color Yellow Urine Appearance Sl cloudy Urine pH 5.0 (4.5-8.0) Ur Specific [place] 1.020 (1.000-1.035) Urine Protein 2+ H (Negative) Urine Glucose (UA) Negative (Negative) g/dL Urine Ketones Negative (NEGATIVE) Urine Occult Blood 3+ H (Negative) Urine Nitrate Negative (Negative) Urine Bilirubin Negative (NEGATIVE) Urine Urobilinogen 0.2 (0.2) E.U./dL Ur Leukocyte Esterase 1+ H (NEGATIVE) Urine RBC 10-30/hpf H (0-5/HPF) Urine WBC 5-10/hpf H (0-5/HPF) Amorphous Sediment 1+ Urine Bacteria Moderate (10-30) H (None) Urine Mucus 2+ H (Negative) Ur Culture Indicated? Specimen cultured MDM Narrative Medical decision making narrative: Differential diagnosis to consider but not limited to urinary tract infection versus pyelonephritis versus interstitial cystitis versus nephrolithiasis versus ureterolithiasis. Physical examination was reassuring in the emergency department today. Urinalysis did show signs of urinary tract infection and patient states she would like to be treated for the infection. I urged the importance of having the patient follow-up with her surgeon on Friday, Dr. Sims. Patient expresses understanding and agrees to plan. She states that she would like to be discharged home and is stable for discharge. Strict return precautions were discussed with the patient prior to discharge. <Yajaira Arguelles DO - Last Filed: 12/23/21 20:02> Lab Data Labs: Lab Results 12/22/21 Range/Units 13:53 Urine Color Yellow Urine Appearance Sl cloudy Urine pH 5.0 (4.5-8.0) Ur Specific [place] 1.020 (1.000-1.035) Urine Protein 2+ H (Negative) Urine Glucose (UA) Negative (Negative) g/dL Urine Ketones Negative (NEGATIVE) Urine Occult Blood 3+ H (Negative) Urine Nitrate Negative (Negative) Urine Bilirubin Negative (NEGATIVE) Urine Urobilinogen 0.2 (0.2) E.U./dL Ur Leukocyte Esterase 1+ H (NEGATIVE) Urine RBC 10-30/hpf H (0-5/HPF) Urine WBC 5-10/hpf H (0-5/HPF) Amorphous Sediment 1+ Urine Bacteria Moderate (10-30) H (None) Urine Mucus 2+ H (Negative) Ur Culture Indicated? Specimen cultured Discharge Plan Departure Patient Disposition: Home Clinical Impression: Urinary tract infection, Urinary catheter in place Instructions: DI for Urinary Tract Infection (UTI) Activity Restrictions/Additional Instructions: *You have been diagnosed with urinary tract infection *What to do: *Please continue to take your regular medications as directed. [X] New medication prescriptions sent to your pharmacy: [facility] [place] - Bactrim [ ] New medication written as a paper prescription [ ] No new medications given You were evaluated in the emergency department today for concern for possible urinary tract infection. Urinalysis obtained in the emergency department today did show signs infection, and I have prescribed you a course of antibiotics to preferred pharmacy ([facility] in [place]). Please take this antibiotic as directed and complete the entire course. Ensure that you discuss this visit with Dr. Sims during her visit with her on Friday. I also recommend you follo w-up with the primary care provider within the next 2-3 days for further evaluation. Please do not hesitate to return to the emergency department if you experience fever, blood in your urine, increasing pain, or any other concerning symptoms. *Please follow up with your primary care provider in 2-3 days, call for an appointment. Let them know you were seen in the Emergency Department and that we ask that you be seen in follow up. We will electronically transmit a record of today's note if your PCP is in our system *If you do not have a primary care provider please contact the [facility] Resource line at [phone]. They will ask some questions about your medical history and help get you set up with a doctor in the community. *Return to Emergency Department if you should have any new, worsening or concerning symptoms, such as fever greater than 101 F, shaking chills, worsening pain, persistent vomiting or other bothersome symptoms. Prescriptions: New sulfamethoxazole-trimethoprim [Bactrim DS] 800-160 mg tablet 1 tab PO BID Qty: 14 0RF No Action meclizine 25 mg PO PRN Qty: 0 0RF ibuprofen 600 MG tablet 600 mg PO TID PRN (Reason: pain) Qty: 0 0RF atorvastatin 20 mg tablet 20 mg PO BEDTIME Qty: 90 2RF zolpidem 10 mg tablet 10 mg PO HSP PRN (Reason: insomnia) Qty: 30 3RF ciprofloxacin HCl 500 mg tablet 500 mg PO BID Qty: 14 1RF letrozole 2.5 mg tablet 2.5 mg PO DAILY 0RF A-Reds 2 1 cap PO BID 0RF iron 1 tab PO PRN PRN (Reason: when needs a boost) 0RF Referrals: Prince España MD [Primary Care Provider] - <Yajaira Arguelles DO - Last Filed: 12/23/21 20:02> Cosign ED Attending Merariature Attestation: I was immediately available in the department for consultation. Documentation has been reviewed.
--- NOTE | 2021-12-22 14:59 | PC.NURSE ---
Catheter in place since friday, postop bladder cancer surgery
[2021-12-22 15:00] VITALS: BP 133/76; PULSE 77; RESP 15; O2SAT 99
== END 2021-12-22 15:01 | disposition home or self-care (01) ==
PROVIDERS: Emergency Provider Physician Assistant; PCP Internal Medicine
DX: N39.0 Urinary tract infection, site not specified (principal)
CPT/HCPCS: 81001; 87086; 99282

== ENCOUNTER → 2022-01-21 13:43 | Outpatient (CLI) | payer MEDICARE, OTHER, SELFPAY ==
[2022-01-21 14:38] LABS: BUN Creatinine Ratio 18.4 (6-22); Blood Urea Nitrogen 16 mg/dL (7-17); Estimated Glomerular Filt Rate > 60.0 mL/min (>60)
== END ==
PROVIDERS: PCP Internal Medicine; Referring Provider Urology; Visit Provider Urology
DX: C67.9 Malignant neoplasm of bladder, unspecified (principal)
CPT/HCPCS: 36415; 82565; 84520

== ENCOUNTER → 2022-01-23 09:03 | Outpatient (CLI) | payer MEDICARE, OTHER, SELFPAY ==
--- NOTE | 2022-01-23 | DI.CT.S_ITS ---
PROCEDURE: CT CHEST W CON INDICATIONS: UROTHELIAL CARCINOMA OF THE BLADDER TECHNIQUE: After the administration of intravenous contrast, 5 mm thick sections acquired from the pulmonary apices to the posterior costophrenic angles. 1 mm axial lung, 5 mm thick coronal and sagittal reformats and 7 mm axial MIP were acquired. For radiation dose reduction, the following was used: automated exposure control, adjustment of mA and/or kV according to patient size. COMPARISON: [facility], CT, CT ABDOMEN PELVIS W CON, 09/24/2018, 14:09. [facility], CT, CT ABDOMEN PELVIS WO/W CON, 12/06/2021, 15:04. FINDINGS: Image quality: Excellent. Lungs and pleura: No acute air space opacities. No pleural effusions or pneumothorax. Central and peripheral airways are patent and normal in caliber. Mediastinum: Heart size is normal. No pericardial effusion. No mediastinal or hilar adenopathy by size criteria. Thoracic aorta and central pulmonary arteries are normal in size. Esophagus is normal in caliber. No hiatal hernia. Bones and chest wall: Surgical clips are seen in the right breast. No suspicious bony lesions. No vertebral body compression fractures. No axillary or supraclavicular adenopathy by size criteria. Thyroid is unremarkable. Abdomen: The liver is diffusely hypoattenuating, consistent with fatty infiltration. A hyperenhancing lesion is seen in the posterior right hepatic lobe (46/2), which is stable when compared to prior CTs from 12/06/2021 and 09/24/2018 and is most likely a flash filling hemangioma.. Probable layering sludge in the gallbladder. IMPRESSION: 1. No CT evidence of metastatic disease in the chest. No significant lymphadenopathy. 2. Diffuse hepatic steatosis. Dictated by: Jose Priest M.D. on 01/23/2022 at 10:15 Approved by: Jose Priest M.D. on 01/23/2022 at 10:23
== END ==
PROVIDERS: PCP Internal Medicine; Referring Provider Urology; Visit Provider Urology
DX: C67.9 Malignant neoplasm of bladder, unspecified (principal); K76.0 Fatty (change of) liver, not elsewhere classified
CPT/HCPCS: 71260

== ENCOUNTER → 2022-03-06 10:59 | Outpatient (CLI) | payer MEDICARE, OTHER, SELFPAY ==
--- NOTE | 2022-03-06 11:01 | DI.MG.S_ITS ---
BILATERAL DIGITAL SCREENING MAMMOGRAM 3D/2D WITH CAD: 03/06/2022 CLINICAL: Routine screening. Personal history of right breast cancer. Family history of breast cancer. Comparison is made to exams dated: 04/26/2021 breast MRI, 10/17/2020 mammogram, 12/20/2019 mammogram - [facility], 10/08/2019 mammogram, and 09/26/2018 mammogram - [facility]. There are scattered fibroglandular elements in both breasts. Current study was also evaluated with a Computer Aided Detection (CAD) system. There are benign post operative findings in the right breast. No significant masses, calcifications, or other findings are seen in either breast. There has been no significant interval change. IMPRESSION: BENIGN There is no mammographic evidence of malignancy. A 1 year screening mammogram is recommended. This exam was interpreted at Station ID: [id number]. NOTE: For mammograms, a report in lay terms will be sent to the patient. Approximately 15% of breast malignancies will not be visualized mammographically. In the management of a palpable breast mass, a negative mammogram must not discourage biopsy of a clinically suspicious lesion. Electronically Signed By: Gilberto hare/ira:03/06/2022 12:28:51 letter sent: Normal Exam ACR BI-RADS Category 2: Benign Finding(s) [id number]
== END ==
PROVIDERS: PCP Internal Medicine; Referring Provider Internal Medicine; Visit Provider Internal Medicine
DX: Z12.31 Encounter for screening mammogram for malignant neoplasm of breast (principal); Z85.3 Personal history of malignant neoplasm of breast; Z80.3 Family history of malignant neoplasm of breast
CPT/HCPCS: 77063; 77067

== ENCOUNTER → 2022-11-11 10:57 | Outpatient (CLI) | payer MEDICARE, OTHER, SELFPAY ==
[2022-11-11 12:28] LABS: Hemoglobin A1C% w Est Avg Glu 6.1 % (4.0-6.0)
[2022-11-11 12:36] LABS: BUN Creatinine Ratio 23.9 (6-22); Blood Urea Nitrogen 17 mg/dL (7-17); Calcium 9.5 mg/dL (8.4-10.2); Carbon Dioxide 30 mmol/L (22-32); Chloride 102 mmol/L (98-107); Estimated Glomerular Filt Rate > 60 mL/min (>60); Glucose 129 mg/dL (80-110); HEMOLYSIS < 15 (0-50); Potassium 3.9 mmol/L (3.4-5.1); Sodium 140 mmol/L (137-145)
== END ==
PROVIDERS: PCP Internal Medicine; Referring Provider Internal Medicine; Visit Provider Internal Medicine
DX: R73.9 Hyperglycemia, unspecified (principal)
CPT/HCPCS: 36415; 80048; 83036

== ENCOUNTER → 2023-05-08 10:39 | Outpatient (CLI) | payer MEDICARE, OTHER, SELFPAY ==
--- NOTE | 2023-05-08 10:42 | DI.RAD.S_ITS ---
PROCEDURE: FL BARIUM SWALLOW INDICATIONS: DYSPHAGIA COMPARISON: RF, UPPER GI AIR CONTRAST WITH KUB, 06/09/2009, 9:17. [facility], CT, CT CHEST WITHOUT CONTRAST, 02/24/2023, 10:49. [facility], CT, CT IVP, 02/24/2023, 10:51. FINDINGS: Function: There is moderate esophageal peristalsis. There is severe gastroesophageal reflux. There is normal transit of a calibrated barium tablet through the esophagus into the stomach. Morphology: Air-contrast images demonstrate normal mucosal morphology. Single contrast views show no esophageal strictures, extrinsic mass effects, or diverticula. There is a small hiatal hernia. Limited images of the stomach demonstrate normal appearance. IMPRESSION: 1. Moderate esophageal dysmotility. 2. Severe gastroesophageal reflux. 3. Small sliding hiatal hernia. 4. No esophageal obstruction. Dictated by: Tenzin Estes M.D. on 05/08/2023 at 12:51 Approved by: Tenzin Estes M.D. on 05/08/2023 at 12:55
== END ==
PROVIDERS: PCP Internal Medicine; Referring Provider Otolaryngology; Visit Provider Otolaryngology
DX: K22.4 Dyskinesia of esophagus (principal); K21.9 Gastro-esophageal reflux disease without esophagitis; K44.9 Diaphragmatic hernia without obstruction or gangrene; R13.19 Other dysphagia
CPT/HCPCS: 74220

== ENCOUNTER 2023-06-24 14:27 | Emergency (ER) | payer MEDICARE, OTHER, SELFPAY ==
[2023-06-24] VITALS (16 sets, daily range): BP systolic 131–195; BP diastolic 72–113; PULSE 70–95; RESP 16–18; TEMP 36.7; O2SAT 95–98
[2023-06-24 15:11] LABS: Add Manual Diff / Slide Review NO; Basophils Absolute Auto 0 /uL (0-100); Basophils Percent Auto 0.7 % (0-2); Eosinophils Absolute Auto 100 /uL (0-450); Eosinophils Percent Auto 1.6 % (2-4); Hematocrit 41.2 % (36-46); Hemoglobin 13.8 g/dL (12.0-16.0); Lymphocytes Absolute Auto 900 /uL (1100-4500); Lymphocytes Percent Auto 17.1 % (25-40); Mean Corpuscular HGB Conc 33.5 % (30-36); Mean Corpuscular Hemoglobin 31.3 PG (26-34); Mean Corpuscular Volume 93.3 fL (80-100); Monocytes Absolute Auto 900 /uL (0-900); Monocytes Percent Auto 17.3 % (3-14); Neutrophils Absolute Auto 3200 /uL (1500-7000); Neutrophils Percent Auto 63.3 % (50-75); Platelet Count 245 X10^3/uL (150-400); Red Blood Cell Count 4.42 X10^6/uL (4.0-5.2); Red Cell Distribution Width 14.3 % (11.6-14.8); White Blood Cell Count 5.1 X10^3/uL (4.5-11.0)
[2023-06-24 15:28] LABS: Alanine Aminotransferase 33 IU/L (<35); Albumin 3.8 g/dL (3.5-5.0); Albumin Globulin Ratio 1.2 (1.0-2.8); Alkaline Phosphatase 127 U/L (38-126); Aspartate Aminotransferase 45 IU/L (14-36); BUN Creatinine Ratio 23.1 (6-22); Bilirubin Total 0.4 mg/dL (0.2-1.3); Blood Urea Nitrogen 15 mg/dL (7-17); Calcium 9.4 mg/dL (8.4-10.2); Carbon Dioxide 28 mmol/L (22-32); Chloride 104 mmol/L (98-107); Estimated Glomerular Filt Rate > 60 mL/min (>60); Globulin 3.3 g/dL (1.7-4.1); Glucose 112 mg/dL (80-110); HEMOLYSIS 21 (0-50); Lipase 188 U/L (23-300); Potassium 3.8 mmol/L (3.4-5.1); Sodium 139 mmol/L (137-145); Total Protein 7.1 g/dL (6.3-8.2)
--- NOTE | 2023-06-24 18:39 | PC.NURSE ---
This RNs first interaction with pt @ 2580. Pt has been in lobby.
--- NOTE | 2023-06-24 19:28 | ED_ITS ---
HPI - Abdominal Pain General Chief Complaint: Abdominal Pain Stated Complaint: Hx cancer, Lower ABD/groin pain Time Seen by Provider: 06/24/23 19:25 Source: patient Mode of arrival: Ambulatory History of Present Illness HPI narrative: Patient 83-year-old female history of breast cancer, bladder cancer, obesity, sleep apnea chronic back pain presenting today with right lower quadrant pain ongoing for the last 5 days. She reports that it hurts whenever she walks. She is been trying to eat and drink. Denies any painful frequent urination no flank pain. She denies any fever or chills. She is not requiring anything for pain at this time. No chest pain shortness of breath. She denies any change in bowel or bladder habits. Related Data Home Medications Medication Instructions Recorded Confirmed A-Reds 2 1 cap PO BID 09/24/18 11/11/22 letrozole 2.5 mg tablet 2.5 mg PO DAILY 05/15/21 11/11/22 Calcium 1 tab PO DAILY 05/14/22 11/11/22 L.acid,gas,marcelino,rham-B.ani-cran 1 cap PO DAILY 05/14/22 11/11/22 [up4 Probiotics Women's] acetaminophen 325 mg tablet 650 mg PO Q6H PRN 05/14/22 11/11/22 ascorbic acid (vitamin C) 1 tab PO DAILY 05/14/22 11/11/22 cholecalciferol (vitamin D3) 1 cap PO DAILY 05/14/22 11/11/22 cranberry fruit concentrate 1 cap PO DAILY 05/14/22 11/11/22 denosumab 60 mg/mL subcutaneous 60 mg SUBCUT [id number] 05/14/22 11/11/22 syringe ibuprofen 100 mg/5 mL oral 200 mg PO Q6H PRN 05/14/22 11/11/22 suspension rl-urg-jwdmm-calcium carb-K1 1 tab PO DAILY 05/14/22 11/11/22 [Women's 50 Plus Multivitamin] Previous Rx's Medication Instructions Recorded atorvastatin 20 mg tablet 20 mg PO BEDTIME #90 tabs 03/13/23 zolpidem 10 mg tablet 10 mg PO HSP PRN insomnia #30 tabs 03/31/23 Allergies Allergy/AdvReac Type Severity Reaction Status Date / Time aspirin [ASPIRIN] AdvReac Mild STOMACH Verified 11/11/22 10:06 PAIN Review of Systems Review of Systems ROS Unobtainable: All systems reviewed & are unremarkable except as noted in HPI and below Patient History Medical History (Updated 06/24/23 @ 21:24 by Valerie Mota DO) Bladder cancer (~2021) Breast cancer (~10/2019) Central sleep apnea Gastroesophageal reflux disease without esophagitis Hyperglycemia Mixed hyperlipidemia Morbid obesity Obstructive sleep apnea of adult Surgical History S/P ventral herniorrhaphy Status post right partial knee replacement Family History Spouse Heart disease Mother Cancer Social History marital status: details: domestic partner household members: significant other lives independently: Yes caregiver/support person: No housing: house pets and animals: Yes education level: college occupational status: other (Retired) Previous occupational history: [email or web address]. cruz/jain: Other travel history: over 6 months ago (3 weeks in [place]) leisure activities: volunteer work ([employer]) and other ([employer]) Smoking Status: Never smoker Tobacco: How many years used: 0 quit status: quit date established (Never Started) second hand exposure: Yes (Once in a while) alcohol intake: current substance use type: does not use Smoking Status: Never smoker alcohol intake frequency: holidays/special occasions only Substance Use Type: does not use Exam Initial Vital Signs Initial Vital Signs: Vital Signs Temperature 98.1 F 06/24/23 14:43 Pulse Rate 77 06/24/23 14:43 Respiratory Rate 18 06/24/23 14:43 Blood Pressure 151/72 H 06/24/23 14:43 Pulse Oximetry 98 06/24/23 14:43 Oxygen Delivery Method Room Air 06/24/23 14:43 GENERAL: Alert very pleasant 83-year-old female and in no acute distress. HEENT: Head atraumatic,EOMI, pupils reactive, face symmetric, moist mucous membranes CARDIOVASCULAR: Regular rate and rhythm without murmurs, rubs or gallops. RESPIRATORY: Breath sounds equal bilaterally, no wheezes rales or rhonchi. ABDOMEN: Soft, tender right lower quadrant no guarding no rebound : No CVA tenderness EXTREMITIES: Normal range of motion, no clubbing or edema. Neurovascularly intact NEUROLOGICAL: Alert and oriented x4.Normal gait and speech. SKIN: Warm, dry, no laceration, no petechiae, no rashes or lesions. Course Orders Ordered: ED Orders 06/24/23 19:33 CT abdomen pelvis w con Stat Discontinued Medications Ketorolac Tromethamine (Ketorolac 30 Mg/Ml Vial) 15 mg IV NOW ONE Stop: 06/24/23 20:01 Last Admin: 06/24/23 20:06 Dose: 15 mg Documented By: Ondansetron HCl (Ondansetron 4 Mg Odt) 4 mg PO NOW PRN PRN Reason: Nausea And Vomiting Ondansetron HCl (Ondansetron 4 Mg/2 Ml Inj) 4 mg IV NOW PRN PRN Reason: Nausea And Vomiting Vital Signs Vital signs: Vital Signs - 8 hr 06/24/23 20:30 06/24/23 20:45 06/24/23 21:00 Pulse Rate 70 72 74 Blood Pressure Pulse Oximetry 97 96 97 06/24/23 21:01 06/24/23 21:01 Pulse Rate 74 Blood Pressure 131/85 Pulse Oximetry 97 MDM - Abdominal Pain Lab Data 06/24/23 14:57 06/24/23 14:57 Labs: Lab Results 06/24/23 06/24/23 Range/Units 14:57 14:57 WBC 5.1 (4.5-11.0) X10^3/uL RBC 4.42 (4.0-5.2) X10^6/uL Hgb 13.8 (12.0-16.0) g/dL Hct 41.2 (36-46) % MCV 93.3 (80-100) fL MCH 31.3 (26-34) PG MCHC 33.5 (30-36) % RDW 14.3 (11.6-14.8) % Plt Count 245 (150-400) X10^3/uL Neut % (Auto) 63.3 (50-75) % Lymph % (Auto) 17.1 L (25-40) % [place] % (Auto) 17.3 H (3-14) % Eos % (Auto) 1.6 L (2-4) % Baso % (Auto) 0.7 (0-2) % Neut # (Auto) 3200 (8324-7479) /uL Lymph # (Auto) 900 L (8384-8097) /uL [place] # (Auto) 900 (0-900) /uL Eos # (Auto) 100 (0-450) /uL Baso # (Auto) 0 (0-100) /uL Sodium 139 (137-145) mmol/L Potassium 3.8 (3.4-5.1) mmol/L Chloride 104 (98-107) mmol/L Carbon Dioxide 28 (22-32) mmol/L BUN 15 (7-17) mg/dL Creatinine 0.65 (0.52-1.04) mg/dL Estimated GFR > 60 (>60) mL/min BUN/Creatinine Ratio 23.1 H (6-22) Glucose 112 H (80-110) mg/dL Calcium 9.4 (8.4-10.2) mg/dL Total Bilirubin 0.4 (0.2-1.3) mg/dL AST 45 H (14-36) IU/L ALT 33 (<35) IU/L Alkaline Phosphatase 127 H (38-126) U/L Total Protein 7.1 (6.3-8.2) g/dL Albumin 3.8 (3.5-5.0) g/dL Globulin 3.3 (1.7-4.1) g/dL Albumin/Globulin Ratio 1.2 (1.0-2.8) Lipase 188 (23-300) U/L Point of care testing: Urine Dip Bedside Urine Glucose Negative Bedside Urine Bilirubin - Negative Bedside Urine Ketone - Negative Urine Specific [place] 1.020 Bedside Urine Occult Blood - Negative Bedside Urine pH 6.0 Bedside Urine Protein - Negative Bedside Urine Urobilinogen - Negative Bedside Urine Nitrite - Negative Bedside Urine Leukocytes - Negative Esterase Imaging Data CT scan - abdomen/pelvis: Radiologist's Impression: PROCEDURE:? CT ABDOMEN PELVIS W CON ? INDICATIONS:? rlq pain ? TECHNIQUE:? After the administration of IV contrast, axial sections were acquired from the lung bases to the pubic symphysis.? Coronal and sagittal reformats were performed.? For radiation dose reduction, the following was used:? automated exposure control, adjustment of mA and/or kV according to patient size. ? COMPARISON:? [facility], CT, CT CHEST ABDOMEN PELVIS WITH CONTRAST, 02/26/2022, 12:36.? [facility], CT, CT ABDOMEN PELVIS WO/W CON, 12/06/2021, 15:04.? [facility], CT, CT IVP, 02/24/2023, 10:51.? [facility], CT, CT CHEST ABDOMEN PELVIS WITH CONTRAST, 08/28/2022, 11:12.? [facility], CT, CT ABDOMEN PELVIS W CON, 09/24/2018, 14:09. ? FINDINGS:? Image quality:? Excellent.? ? Lung bases:? There is mild atelectasis and scarring in the lung bases.? ? Heart:? Heart is normal in size.? There is a small hiatal hernia. ? ? ABDOMEN: Liver:? There is diffuse hypoattenuation of the liver consistent with fatty infiltration. ?Posteriorly within segment 7 of the right hepatic lobe, there is an oval relatively hypoattenuating lesion measuring 2.2 x 2.1 cm on series 2, image 27. This appears progressively increased in size compared to the prior studies.? Gallbladder:? Within normal limits without calcified gallstones.? ? Biliary ducts:? No biliary ductal dilatation.? ? Pancreas:? Unremarkable.? ? Spleen:? Normal in size.? ? Adrenal Glands:? No adrenal nodules.? ? Kidneys and Ureters:? No hydronephrosis.? ? ? Stomach and Bowel:? Stomach, small bowel loops, and colon are normal in caliber and wall thickness.? No pericecal inflammatory changes to suggest appendicitis.? Peritoneum:? No abnormal intraperitoneal fluid.? No free air.? ? Ventral Wall: ? No hernia.? Abdominal Nodes:? No retroperitoneal or mesenteric adenopathy by size criteria.? Vessels:? Aorta and inferior vena cava are normal in size.? ? PELVIS: Pelvic Organs:? Unremarkable.? ? Bladder:? The bladder demonstrates postsurgical changes with scarring redemonstrated anteriorly.? No new suspicious mass lesions.? ? Pelvic Nodes: No enlarged lymph nodes.? Miscellaneous: No inguinal hernias are seen. ? ? ? Bones:? Visualized osseous structures demonstrate no suspicious focal lesions. ? IMPRESSION:? ? 1. Relatively hypoattenuating lesion in the right hepatic lobe demonstrates progressive increase in size compared to the prior studies.? The differential includes focal fatty sparing given diffuse fatty infiltration, a hemangioma, or metastatic disease.? Further evaluation may be obtained with a liver protocol MRI. ? 2. Biliary sludge without calcified gallstones or CT evidence of cholecystitis. ? 3. No evidence of appendicitis. ? 3. Postsurgical changes in the bladder without definite evidence of a recurrent bladder mass.? ? Dictated by: Last Edward M.D. on 06/24/2023 at 20:45 ? ? Approved by: Last Edward M.D. on 06/24/2023 at 20:54? ECG Data Interpretation: Sinus rhythm rate 75 GA interval 156 QTC 448 changes no T-wave inversions similar to previous MDM Narrative Medical decision making narrative: Patient 83-year-old female history of multiple cancers presenting today with increasing right lower quadrant pain worse with walking. Labs have been reviewed and are fairly unremarkable no leukocytosis or anemia, no electrolyte abnormality. CT abdomen pelvis shows a lesion in the right hepatic lobe some biliary sludge no evidence of appendicitis or other cause of right lower quadrant pain. There is no diverticulitis or nephrolithiasis. There is no elevation in bilirubin or liver enzymes to suggest cholelithiasis. At this time unclear cause is causing her pain. But no need for any further evaluation today. Discharge Plan Departure Patient Disposition: Home Clinical Impression: Abdominal pain Instructions: Acute Abdominal Pain Activity Restrictions/Additional Instructions: *You have been diagnosed with abdominal pain *What to do: At this time no cause of your abdominal pain is found. No evidence of appendicitis. You do have a spot in your liver. There is some sludge in your gallbladder not sure it is causing your pain today. *Continue to take medications as directed *Follow up with your primary care provider in 2-3 days or call [phone] *Return to ER if you should have increasing pain vomiting fever or any new, worsening or concerning symptoms Prescriptions: No Action atorvastatin 20 mg tablet 20 mg PO BEDTIME Qty: 90 3RF zolpidem 10 mg tablet 10 mg PO HSP PRN (Reason: insomnia) Qty: 30 3RF letrozole 2.5 mg tablet 2.5 mg PO DAILY acetaminophen 325 mg tablet 650 mg PO Q6H PRN Calcium 1 tab PO DAILY ibuprofen 100 mg/5 mL suspension 200 mg PO Q6H PRN kj-clf-grxhh-calcium carb-K1 [Women's 50 Plus Multivitamin] 1 tab PO DAILY L.acid,gas,marcelino,rham-B.ani-cran [up4 Probiotics Women's] 1 cap PO DAILY ascorbic acid (vitamin C) 1 tab PO DAILY denosumab 60 mg/mL syringe 60 mg SUBCUT [id number] cholecalciferol (vitamin D3) 1 cap PO DAILY cranberry fruit concentrate 1 cap PO DAILY A-Reds 2 1 cap PO BID Referrals: Prince España MD [Primary Care Provider] - Stand Alone Forms: Patient Portal/API
--- NOTE | 2023-06-24 19:33 | DI.CT.S_ITS ---
PROCEDURE: CT ABDOMEN PELVIS W CON INDICATIONS: rlq pain TECHNIQUE: After the administration of IV contrast, axial sections were acquired from the lung bases to the pubic symphysis. Coronal and sagittal reformats were performed. For radiation dose reduction, the following was used: automated exposure control, adjustment of mA and/or kV according to patient size. COMPARISON: [facility], CT, CT CHEST ABDOMEN PELVIS WITH CONTRAST, 02/26/2022, 12:36. [facility], CT, CT ABDOMEN PELVIS WO/W CON, 12/06/2021, 15:04. [facility], CT, CT IVP, 02/24/2023, 10:51. [facility], CT, CT CHEST ABDOMEN PELVIS WITH CONTRAST, 08/28/2022, 11:12. [facility], CT, CT ABDOMEN PELVIS W CON, 09/24/2018, 14:09. FINDINGS: Image quality: Excellent. Lung bases: There is mild atelectasis and scarring in the lung bases. Heart: Heart is normal in size. There is a small hiatal hernia. ABDOMEN: Liver: There is diffuse hypoattenuation of the liver consistent with fatty infiltration. Posteriorly within segment 7 of the right hepatic lobe, there is an oval relatively hypoattenuating lesion measuring 2.2 x 2.1 cm on series 2, image 27. This appears progressively increased in size compared to the prior studies. Gallbladder: Within normal limits without calcified gallstones. Biliary ducts: No biliary ductal dilatation. Pancreas: Unremarkable. Spleen: Normal in size. Adrenal Glands: No adrenal nodules. Kidneys and Ureters: No hydronephrosis. Stomach and Bowel: Stomach, small bowel loops, and colon are normal in caliber and wall thickness. No pericecal inflammatory changes to suggest appendicitis. Peritoneum: No abnormal intraperitoneal fluid. No free air. Ventral Wall: No hernia. Abdominal Nodes: No retroperitoneal or mesenteric adenopathy by size criteria. Vessels: Aorta and inferior vena cava are normal in size. PELVIS: Pelvic Organs: Unremarkable. Bladder: The bladder demonstrates postsurgical changes with scarring redemonstrated anteriorly. No new suspicious mass lesions. Pelvic Nodes: No enlarged lymph nodes. Miscellaneous: No inguinal hernias are seen. Bones: Visualized osseous structures demonstrate no suspicious focal lesions. IMPRESSION: 1. Relatively hypoattenuating lesion in the right hepatic lobe demonstrates progressive increase in size compared to the prior studies. The differential includes focal fatty sparing given diffuse fatty infiltration, a hemangioma, or metastatic disease. Further evaluation may be obtained with a liver protocol MRI. 2. Biliary sludge without calcified gallstones or CT evidence of cholecystitis. 3. No evidence of appendicitis. 3. Postsurgical changes in the bladder without definite evidence of a recurrent bladder mass. Dictated by: Last Edward M.D. on 06/24/2023 at 20:45 Approved by: Last Edward M.D. on 06/24/2023 at 20:54
[2023-06-24] MEDS: KETOROLAC 30 MG/ML VIAL 15 MG IV (20:06)
== END 2023-06-24 21:31 | disposition home or self-care (01) ==
PROVIDERS: Emergency Medicine; Emergency Provider Emergency Medicine; PCP Internal Medicine
DX: R10.31 Right lower quadrant pain (principal)
CPT/HCPCS: 36415; 74177; 80053; 81003; 83690; 85025; 93005; 93010; 96374; 99284; J1885; Q9967

== ENCOUNTER → 2023-07-07 08:50 | Outpatient (CLI) | payer MEDICARE, OTHER, SELFPAY ==
--- NOTE | 2023-07-07 09:20 | DI.MRI.S_ITS ---
PROCEDURE: MR ABDOMEN LIVER PROTOCOL INDICATIONS: liver mass/breast cancer TECHNIQUE: Coronal HASTE, axial 2D FLASH in- and [id number]; axial breath-hold T2 FSE. Dynamic axial VIBE during the administration of contrast; post-contrast coronal VIBE or 2D FLASH with fat saturation from the hepatic dome to the iliac crests. Optional diffusion weighted imaging and ADC may be performed. COMPARISON: [facility], CT, CT CHEST ABDOMEN PELVIS WITH CONTRAST, 02/26/2022, 12:36. [facility], CT, CT IVP, 02/24/2023, 10:51. [facility], CT, CT ABDOMEN PELVIS W CON, 06/24/2023, 19:50. CT abdomen pelvis 09/24/2018. FINDINGS: Image quality: Suboptimal due to motion artifact Lung bases: No basal pleural effusions. Liver: There is diffuse signal loss on [id number] images compatible with hepatic steatosis. An approximately 2.2 cm rounded region of enhancement is present in segment 7 (series 9, image 36) corresponding to the finding described in the report for the recent CT of the abdomen and pelvis. It is difficult to evaluate on T2 weighted images due to motion artifact, however the finding appears T2 hyperintense with areas of T2 hypointensity potentially representing vasculature or artifact. On postcontrast sequences, the finding mirrors enhancement of blood pool, including on delayed phase images. The finding is not significantly changed since the recent CT but appears increased since 2018. Solid organs: Gallbladder is distended and contains numerous stones. Biliary system is non dilated. No dilation of the main pancreatic duct. Spleen is normal in size and enhancement. No adrenal nodules. No hydronephrosis. Nodes and vessels: No retroperitoneal or mesenteric adenopathy by size criteria. Aorta and inferior vena cava are normal in size. Bowel and peritoneum: Visualized large and small bowel is non-dilated.. No free fluid. IMPRESSION: 1. Limited evaluation due to motion artifact. 2. Previously demonstrated enhancing lesion/structure in hepatic segment 7 may represent a hemangioma but other etiologies are difficult to fully exclude. Enhancement characteristics of the finding would be unusual for metastatic breast carcinoma but metastatic disease cannot be fully excluded. Could consider continued imaging surveillance, with the interval at clinical discretion. Liver protocol CT might be helpful for follow-up/characterization, as this exam may be more resistant to motion artifact. 3. Cholelithiasis. 4. Hepatic steatosis. Dictated by: Jose Giang M.D. on 07/07/2023 at 13:42 Approved by: Jose Giang M.D. on 07/07/2023 at 14:09
== END ==
PROVIDERS: PCP Internal Medicine; Referring Provider Internal Medicine; Visit Provider Internal Medicine
DX: C50.919 Malignant neoplasm of unspecified site of unspecified female breast (principal); K76.9 Liver disease, unspecified; K80.20 Calculus of gallbladder without cholecystitis without obstruction; K76.0 Fatty (change of) liver, not elsewhere classified
CPT/HCPCS: 74183; A9579

== ENCOUNTER 2023-07-15 11:27 | Emergency (ER) | payer MEDICARE, OTHER, SELFPAY ==
[2023-07-15 12:11] VITALS: BP 156/105; PULSE 88; RESP 17; TEMP 36.6; O2SAT 99; BMI 42.5
--- NOTE | 2023-07-15 12:20 | DI.RAD.S_ITS ---
PROCEDURE: XR HIP W PEL IF DONE LT 2V INDICATIONS: left hip pain TECHNIQUE: AP pelvis with lateral view(s) of the left hip(s). COMPARISON: None. FINDINGS: Bones: No fractures or dislocations. Asymmetric moderate left hip joint osteoarthritic changes are seen with joint space narrowing, subchondral sclerosis and lateral marginal osteophyte formation. No evidence of avascular necrosis of femoral head. Pelvic ring appears intact. Degenerative disc disease in visualized lower lumbar spine is seen. No suspicious bony lesions. Soft tissues: The visualized bowel gas pattern is normal. No suspicious soft tissue calcifications. IMPRESSION: No acute pelvic or hip fracture. Moderate left hip joint osteoarthritis. No evidence of avascular necrosis. Dictated by: Car Snow M.D. on 07/15/2023 at 12:59 Approved by: Car Snow M.D. on 07/15/2023 at 13:00
--- NOTE | 2023-07-15 14:23 | ED_ITS ---
HPI - Extremity Injury (Lower) <Adolph Brar PA-C - Last Filed: 07/15/23 14:28> General Chief Complaint: Extremity Injury, Lower Stated Complaint: poss LT hip injury Time Seen by Provider: 07/15/23 14:05 Source: patient Mode of arrival: Ambulatory History of Present Illness HPI Narrative: 83-year-old female with past medical history bladder cancer, obesity, sleep apnea, chronic back pain, breast cancer presents to the ED today with left hip pain, difficulty bearing weight and walking. Patient denies any trauma. Patient was seen in the ED on 06/24/2023 for groin pain, diagnosed as musculoskeletal etiology, discharged home. Patient states that the groin pain has resolved, however her left hip is hurting and it is difficult to bear weight on the left leg. Patient denies numbness, tingling, weakness, saddle paresthesias, urinary hesitancy, urinary incontinence, bowel incontinence. Related Data Home Medications Medication Instructions Recorded Confirmed letrozole 2.5 mg tablet 2.5 mg PO DAILY 05/15/21 07/15/23 denosumab 60 mg/mL subcutaneous 60 mg SUBCUT [id number] 07/15/23 07/15/23 syringe (Prolia) dexamethasone 2 mg tablet 2 mg PO 3XD 07/15/23 07/15/23 Previous Rx's Medication Instructions Recorded atorvastatin 20 mg tablet 20 mg PO BEDTIME #90 tabs 03/13/23 zolpidem 10 mg tablet 10 mg PO HSP PRN insomnia #30 tabs 03/31/23 cyclobenzaprine 10 mg tablet 10 mg PO TID PRN muscle spasm 10 07/15/23 days #30 tabs Allergies Allergy/AdvReac Type Severity Reaction Status Date / Time aspirin [ASPIRIN] AdvReac Mild STOMACH Verified 06/26/23 16:35 PAIN Review of Systems <Adolph Brar PA-C - Last Filed: 07/15/23 14:28> Review of Systems ROS Unobtainable: All systems reviewed & are unremarkable except as noted in HPI and below Constitutional Constitutional: Denies chills, Denies fatigue, Denies fever(s), Denies frequent falls, Denies lethargy and Denies weakness Eyes Eyes: Denies change in vision, Denies eye discharge, Denies irritation and Denies loss of vision ENT Ears, Nose, Mouth, and Throat: Denies change in voice, Denies dizziness, Denies neck pain, Denies sore throat and Denies throat swelling Cardiovascular Cardiovascular: Denies chest pain, Denies irregular heart rhythm, Denies lightheadedness, Denies palpitations, Denies dyspnea, Denies dyspnea on exertion and Denies orthopnea Respiratory Respiratory: Denies cough, Denies dyspnea, Denies dyspnea on exertion and Denies wheezing Gastrointestinal Gastrointestinal: Denies abdominal pain, Denies change in bowel habits, Denies diarrhea, Denies nausea and Denies vomiting Genitourinary Genitourinary: Denies hematuria, Denies flank pain, Denies urinary incontinence and Denies urinary urgency Musculoskeletal Musculoskeletal: Denies back pain, Denies muscle weakness, Denies neck pain, Denies numbness and Denies tingling Comments: Left hip pain Integumentary/Breasts Skin/Breast: Denies pruritus, Denies erythema, Denies rash and Denies wounds Neurologic Neurologic: Denies behavioral changes, Denies confusion, Denies dizziness, Denies frequent falls, Denies loss of vision, Denies numbness, Denies tingling and Denies weakness Psychiatric Psychiatric: Denies anxiety, Denies behavioral changes, Denies confusion, Denies depression, Denies homicidal ideation and Denies suicidal ideation Endocrine Endocrine: Denies fatigue, Denies flushing and Denies palpitations Hematologic/Lymphatic Hematologic/Lymphatic: Denies easy bruising Allergic/Immunologic Allergic/Immunologic: Denies urticaria, Denies throat swelling and Denies wheezing Patient History <Adolph Brar PA-C - Last Filed: 07/15/23 14:28> Medical History Bladder cancer (~2021) Breast cancer (~10/2019) Central sleep apnea Gastroesophageal reflux disease without esophagitis Hyperglycemia Mixed hyperlipidemia Morbid obesity Obstructive sleep apnea of adult Surgical History S/P ventral herniorrhaphy Status post right partial knee replacement Family History Spouse Heart disease Mother Cancer Social History marital status: details: domestic partner household members: significant other lives independently: Yes caregiver/support person: No housing: house pets and animals: Yes education level: college occupational status: other (Retired) 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: Other travel history: over 6 months ago (3 weeks in [place]) leisure activities: volunteer work ([employer]) and other ([employer]) Smoking Status: Never smoker Tobacco: How many years used: 0 quit status: quit date established (Never Started) second hand exposure: Yes (Once in a while) alcohol intake: current substance use type: does not use Smoking Status: Never smoker alcohol intake frequency: holidays/special occasions only Substance Use Type: does not use Exam <Adolph Brar PA-C - Last Filed: 07/15/23 14:28> Narrative Exam Narrative: Const General:?cooperative, healthy appearing and comfortable HENMT Head:?normal to inspection Ears:?hearing grossly normal bilaterally Nose:?external nose normal Face and sinus:?normal facial exam and sinuses nontender Mouth:?oral mucosae normal Throat:?posterior oropharynx normal Eyes General:?appearance normal, both eyes and all related structures Neck Neck:?normal visual inspection and no lymphadenopathy noted Resp Effort & Inspection:?normal respiratory effort Auscultation:?clear to auscultation bilaterally Cardio Rate:?regular rate Rhythm:?regular rhythm Musculoskeletal No deformities, bruising, tenderness to palpation. Strength and sensation is intact. There is full range of motion. Patient is neurovascularly intact. Patient is walking with a walker. Neuro General:?patient alert, patient awake and patient oriented x3 Initial Vital Signs Initial Vital Signs: Vital Signs Temperature 98 F 07/15/23 12:11 Pulse Rate 88 07/15/23 12:11 Respiratory Rate 17 07/15/23 12:11 Blood Pressure 156/105 H 07/15/23 12:11 Pulse Oximetry 99 07/15/23 12:11 Oxygen Delivery Method Room Air 07/15/23 12:11 <Kevin Velazquez DO - Last Filed: 07/15/23 14:40> Initial Vital Signs Initial Vital Signs: Vital Signs Temperature 98 F 07/15/23 12:11 Pulse Rate 88 07/15/23 12:11 Respiratory Rate 17 07/15/23 12:11 Blood Pressure 156/105 H 07/15/23 12:11 Pulse Oximetry 99 07/15/23 12:11 Oxygen Delivery Method Room Air 07/15/23 12:11 Course <Adolph Brar PA-C - Last Filed: 07/15/23 14:28> Orders Ordered: ED Orders 07/15/23 12:20 XR hip w pel if done LT 2V Stat Vital Signs Vital signs: Vital Signs - 8 hr 07/15/23 12:11 07/15/23 14:30 Temperature 98 F Pulse Rate 88 69 Respiratory Rate 17 14 Blood Pressure 156/105 H Pulse Oximetry 99 94 Oxygen Delivery Method Room Air Room Air <Kevin Velazquez DO - Last Filed: 07/15/23 14:40> Orders Ordered: ED Orders 07/15/23 12:20 XR hip w pel if done LT 2V Stat Vital Signs Vital signs: Vital Signs - 8 hr 07/15/23 12:11 07/15/23 14:30 Temperature 98 F Pulse Rate 88 69 Respiratory Rate 17 14 Blood Pressure 156/105 H Pulse Oximetry 99 94 Oxygen Delivery Method Room Air Room Air MDM - Extremity Injury (Lower) <Adolph Brar PA-C - Last Filed: 07/15/23 14:28> MDM Narrative Medical decision making narrative: 83-year-old female with past medical history bladder cancer, obesity, sleep apnea, chronic back pain, breast cancer presents to the ED today with left hip pain, difficulty bearing weight and walking. Concern for fracture/dislocation versus musculoskeletal sprain/strain. X-ray shows no fracture or dislocation. Likely musculoskeletal etiology. Recommend Tylenol, Flexeril for symptoms. Recommend follow-up with PCP as soon as possible. ED return precautions discussed with patient. Patient verbalized understanding. Medical records reviewed: Yes Discharge Plan Departure Patient Disposition: Home Clinical Impression: Hip pain Instructions: DI for Hip Pain Activity Restrictions/Additional Instructions: You were evaluated in the ED today for left-sided hip pain. Your x-ray did not show any fractures or dislocations. Your symptoms are likely due to a musculoskeletal sprain/strain. You may take Tylenol 1000 mg 3 times a day with food. You may also take the muscle relaxant Flexeril as prescribed. Return to the ED if you experience any numbness, tingling, weakness, urinary difficulties, worsening symptoms. Please follow-up with your PCP as soon as possible. Prescriptions: New cyclobenzaprine 10 mg tablet 10 mg PO TID PRN (Reason: muscle spasm) 10 Days Qty: 30 0RF No Action atorvastatin 20 mg tablet 20 mg PO BEDTIME Qty: 90 3RF zolpidem 10 mg tablet 10 mg PO HSP PRN (Reason: insomnia) Qty: 30 3RF letrozole 2.5 mg tablet 2.5 mg PO DAILY dexamethasone 2 mg tablet 2 mg PO 3XD Prolia 60 mg/mL Syringe 60 mg SUBCUT [id number] Referrals: Prince España MD [Primary Care Provider] - Stand Alone Forms: Patient Portal/API <Kevin Velazquez DO - Last Filed: 07/15/23 14:40> Cosign ED Attending Cosignature Attestation: Dr Velazquez Co-Sign Statement: I was available for consultation during this patient's emergency department visit. This chart is signed by myself for administrative purposes only. I did not have direct contact with this patient during this visit. They were seen independently by the APC.
--- NOTE | 2023-07-15 14:23 | PC.NURSE ---
Pt states she has only been taking tylenol 2x a day. Provider educated patient about the use of tylenol. Pt complains of soreness and her left leg giving out when she goes to walk.
[2023-07-15 14:30] VITALS: PULSE 69; RESP 14; O2SAT 94
== END 2023-07-15 14:30 | disposition home or self-care (01) ==
PROVIDERS: Emergency Provider Student in an Organized Health Care Education/Training Program; PCP Internal Medicine
DX: M25.552 Pain in left hip (principal)
CPT/HCPCS: 73502; 99281; 99283

== ENCOUNTER → 2023-08-07 11:32 | Outpatient (CLI) | payer MEDICARE, OTHER, SELFPAY ==
--- NOTE | 2023-08-07 11:33 | DI.RAD.S_ITS ---
PROCEDURE: XR LUMBAR SPINE MIN 4V INDICATIONS: back pain TECHNIQUE: 5 views of the lumbar spine were acquired, including bilateral oblique views. COMPARISON: None. FINDINGS: Bones: 5 nonrib-bearing vertebrae are present. There is normal bony alignment. Mild, approximately 10? of convex right lumbar spine scoliosis. No vertebral body compression fractures. No suspicious bony lesions. Severe L2-L3, L3-L4, L4-L5 and L5-S1 degenerative disc disease. Mild L1-L2 degenerative disc disease. Mild L 2-L3, L3-L4-L4-L5 and L5-S1 facet hypertrophy. Soft tissues: Overlying bowel gas pattern is normal. No suspicious soft tissue calcifications. Oblique images: No pars defects. IMPRESSION: 1. Multilevel degenerative disc disease. 2. Multilevel facet arthropathy. 3. No fracture. No acute osseous lesion. If symptoms and/or clinical suspicion for pathology persists, evaluation with MRI should be considered for further assessment. Dictated by: Inessa Sneed MD, PhD on 08/07/2023 at 13:27 Approved by: Inessa Sneed MD, PhD on 08/07/2023 at 13:29
== END ==
PROVIDERS: PCP Internal Medicine; Referring Provider Internal Medicine; Visit Provider Internal Medicine
DX: M54.9 Dorsalgia, unspecified (principal); M54.16 Radiculopathy, lumbar region; M51.36 Other intervertebral disc degeneration, lumbar region; M47.816 Spondylosis without myelopathy or radiculopathy, lumbar region
CPT/HCPCS: 72110

== ENCOUNTER → 2023-11-04 14:47 | Outpatient (CLI) | payer MEDICARE, OTHER, SELFPAY ==
[2023-11-04 16:37] LABS: Alanine Aminotransferase 28 IU/L (<35); Albumin 3.5 g/dL (3.5-5.0); Albumin Globulin Ratio 1.3 (1.0-2.8); Alkaline Phosphatase 111 U/L (38-126); Aspartate Aminotransferase 43 IU/L (14-36); BUN Creatinine Ratio 31.6 (6-22); Bilirubin Total 0.5 mg/dL (0.2-1.3); Blood Urea Nitrogen 24 mg/dL (7-17); Calcium 9.9 mg/dL (8.4-10.2); Carbon Dioxide 31 mmol/L (22-32); Chloride 102 mmol/L (98-107); Estimated Glomerular Filt Rate > 60 mL/min (>60); Globulin 2.8 g/dL (1.7-4.1); Glucose 120 mg/dL (80-110); HEMOLYSIS < 15 (0-50); Potassium 3.7 mmol/L (3.4-5.1); Sodium 140 mmol/L (137-145); Total Protein 6.3 g/dL (6.3-8.2)
== END ==
PROVIDERS: PCP Internal Medicine; Referring Provider Internal Medicine; Visit Provider Internal Medicine
DX: R73.9 Hyperglycemia, unspecified (principal); E78.2 Mixed hyperlipidemia; E66.01 Morbid (severe) obesity due to excess calories
CPT/HCPCS: 36415; 80053; 83036

== ENCOUNTER → 2024-12-31 09:17 | Outpatient (CLI) | payer MEDICARE, OTHER, SELFPAY ==
[2024-12-31 10:23] LABS: Add Manual Diff / Slide Review NO; Basophils Absolute Auto 0 /uL (0-100); Basophils Percent Auto 0.6 % (0-2); Eosinophils Absolute Auto 100 /uL (0-450); Eosinophils Percent Auto 2.2 % (2-4); Hematocrit 39.5 % (36-46); Hemoglobin 13.2 g/dL (12.0-16.0); Lymphocytes Absolute Auto 700 /uL (1100-4500); Lymphocytes Percent Auto 17.3 % (25-40); Mean Corpuscular HGB Conc 33.4 % (30-36); Mean Corpuscular Hemoglobin 31.4 PG (26-34); Monocytes Absolute Auto 700 /uL (0-900); Monocytes Percent Auto 17.3 % (3-14); Neutrophils Absolute Auto 2600 /uL (1500-7000); Neutrophils Percent Auto 62.6 % (50-75); Platelet Count 235 X10^3/uL (150-400); Red Blood Cell Count 4.21 X10^6/uL (4.0-5.2); Red Cell Distribution Width 14.7 % (11.6-14.8); White Blood Cell Count 4.2 X10^3/uL (4.5-11.0)
[2024-12-31 10:42] LABS: Hemoglobin A1C% w Est Avg Glu 5.7 % (4.0-6.0)
[2024-12-31 11:14] LABS: Alanine Aminotransferase 24 IU/L (<35); Albumin 3.7 g/dL (3.5-5.0); Albumin Globulin Ratio 1.4 (1.0-2.8); Alkaline Phosphatase 109 U/L (38-126); Aspartate Aminotransferase 38 IU/L (14-36); BUN Creatinine Ratio 25.6 (6-22); Bilirubin Total 0.5 mg/dL (0.2-1.3); Blood Urea Nitrogen 21 mg/dL (7-17); Calcium 9.7 mg/dL (8.4-10.2); Carbon Dioxide 31 mmol/L (22-32); Chloride 105 mmol/L (98-107); Cholesterol 141 mg/dL (140-199); Estimated Glomerular Filt Rate > 60 mL/min (>60); Globulin 2.7 g/dL (1.7-4.1); Glucose 107 mg/dL (80-110); HDL Cholesterol 34 mg/dL (40-60); HEMOLYSIS < 15 (0-50); LDL Cholesterol Calculated 82 mg/dL (<100); Potassium 3.6 mmol/L (3.4-5.1); Sodium 141 mmol/L (137-145); Total Protein 6.4 g/dL (6.3-8.2); Triglycerides 127 mg/dL (35-150)
[2024-12-31 11:43] LABS: TSH w/ Reflex to FT4 2.62 uIU/mL (0.47-4.68)
== END ==
PROVIDERS: PCP Internal Medicine; Referring Provider Internal Medicine; Visit Provider Internal Medicine
DX: E78.2 Mixed hyperlipidemia (principal); R73.9 Hyperglycemia, unspecified; K21.9 Gastro-esophageal reflux disease without esophagitis; E03.9 Hypothyroidism, unspecified; D64.9 Anemia, unspecified
CPT/HCPCS: 36415; 80053; 80061; 83036; 84443; 85025

== ENCOUNTER → 2025-03-30 10:04 | Outpatient (CLI) | payer MEDICARE, OTHER, SELFPAY ==
[2025-03-30 13:57] LABS: Appearance Urine UA SL CLOUDY; Bilirubin Urine UA NEGATIVE (NEGATIVE); Color Urine UA YELLOW; Glucose Urine UA NEGATIVE (Negative); Ketones Urine UA NEGATIVE (NEGATIVE); Leukocyte Esterase Urine UA 1+ (NEGATIVE); Nitrite Urine UA NEGATIVE (Negative); Occult Blood Urine UA TRACE-INTACT (Negative); Protein Urine UA NEGATIVE (Negative); Urobilinogen Urine UA 0.2 E.U./dL (0.2)
[2025-03-30 14:01] LABS: Bacteria Urine Many (>30); Culture Indicated Urine Specimen Cultured; RBC Urine None Seen (0-5/HPF); Squamous Epithelial Cell Urine None Seen (0-5/HPF); Urine Volume 10mL (spun); WBC Urine 10-30/HPF (0-5/HPF)
== END ==
LOC: LAB 10:06
PROVIDERS: PCP Internal Medicine; Visit Provider Obstetrics & Gynecology Gynecology
DX: R32 Unspecified urinary incontinence (principal)
CPT/HCPCS: 81001; 87077; 87086; 87186

== ENCOUNTER → 2025-08-09 12:10 | Outpatient (CLI) | payer MEDICARE, OTHER, SELFPAY ==
[2025-08-09 13:43] LABS: Appearance Urine UA CLEAR; Bilirubin Urine UA NEGATIVE (NEGATIVE); Color Urine UA YELLOW; Glucose Urine UA NEGATIVE (Negative); Ketones Urine UA NEGATIVE (NEGATIVE); Leukocyte Esterase Urine UA TRACE (NEGATIVE); Nitrite Urine UA NEGATIVE (Negative); Occult Blood Urine UA 1+ (Negative); Protein Urine UA 1+ (Negative); Specific Gravity Urine UA 1.025 (1.000-1.035); Urobilinogen Urine UA 0.2 E.U./dL (0.2); pH Urine UA 6.0 (4.5-8.0)
[2025-08-09 13:45] LABS: Culture Indicated Urine Specimen Cultured
== END ==
PROVIDERS: PCP Internal Medicine; Referring Provider Obstetrics & Gynecology Gynecology; Visit Provider Obstetrics & Gynecology Gynecology
DX: N39.41 Urge incontinence (principal)
CPT/HCPCS: 81001; 87086